=== PATIENT | female | born 1940 | race Caucasian/White ===

== ENCOUNTER → 2020-07-22 12:49 | Outpatient (BNVA) | payer MEDICARE, SELFPAY | PROVIDERS: PCP Internal Medicine; Referring Provider Internal Medicine; Visit Provider Internal Medicine | DX: I48.21 Permanent atrial fibrillation (principal); I10 Essential (primary) hypertension; E11.8 Type 2 diabetes mellitus with unspecified complications; J44.9 Chronic obstructive pulmonary disease, unspecified; E78.5 Hyperlipidemia, unspecified; Z79.01 Long term (current) use of anticoagulants; Z79.899 Other long term (current) drug therapy | CPT/HCPCS: 93005; 99212 ==

== ENCOUNTER 2021-01-16 12:29 | Outpatient (REF) | payer MEDICARE, SELFPAY ==
--- NOTE | ~2021-01-16 | MM_ITS ---
EXAMINATION: MM SCREENING DIGITAL BREAST TOMOSYNTHESIS, BILATERAL CLINICAL INFORMATION: Screening. Asymptomatic. The lifetime risk of breast cancer based on the Tyrer-Cuzick Model is 2%. COMPARISON: Mammography: 10/04/2019, 09/28/2018, 09/13/2017, 08/19/2016, 07/07/2015 TECHNIQUE: Digital breast tomosynthesis is performed in both the craniocaudal and mediolateral oblique views along with computer-aided detection (CAD). Synthesized 2D images are generated from the tomosynthesis. Additional bilateral exaggerated CC views are provided. FINDINGS: There are scattered areas of fibroglandular density (ACR BI-RADS breast composition Category b). The breasts are symmetrically decreased in size from prior studies consistent with probable generalized weight loss. Breast tissue composition borders on heterogeneously dense. The right breast shows no interval mass or architectural abnormality. Neither breast shows abnormal calcifications. The axilla and skin contours are unremarkable. Left CC view shows asymmetric density mid aspect inner quadrant which may represent shifting fibroglandular densities. Patient will be recalled to further characterize. MM/MM tomosynthesis screening BI IMPRESSION: 1. Left: Asymmetric density mid inner quadrant on CC view possibly summation artifact. 2. Right: Bilateral breasts symmetrically smaller suggesting weight loss. Otherwise no significant change right breast. ASSESSMENT: BI-RADS 0: Incomplete - Need Additional Imaging Evaluation RECOMMENDATION: 1. Additional views of the left breast (3D rolled CC x 2; 3D spot CC). 2. Targeted ultrasound if warranted after review of the additional views. 3. Radiology department staff will contact the patient for additional imaging. This patient's information was entered into a reminder system with a target due date for their next mammogram.
== END 2021-01-16 12:30 | disposition home or self-care (01) ==
LOC: HO.MAMMO 12:29
PROVIDERS: Visit Provider Internal Medicine
DX: Z12.31 Encounter for screening mammogram for malignant neoplasm of breast (principal)
CPT/HCPCS: 77063; 77067

== ENCOUNTER 2021-01-27 11:32 | Outpatient (REF) | payer MEDICARE, SELFPAY ==
--- NOTE | ~2021-01-27 | MM_ITS ---
EXAMINATION: MM DIAGNOSTIC DIGITAL BREAST TOMOSYNTHESIS, LEFT US DIAGNOSTIC ULTRASOUND BREAST, LEFT CLINICAL INFORMATION: Recall from screening for asymmetric density mid inner left breast. Age 80. No known family history breast cancer. TC score 2%. COMPARISON: Mammography: 01/16/2021, 10/04/2019, 09/28/2018 TECHNIQUE: Digital breast tomosynthesis is performed. 2D images are generated from the tomosynthesis. The following views are obtained: 3-D rolled CC x2, 3-D spot CC Ultrasound left breast is targeted to the inner quadrants. Grayscale imaging and color Doppler are performed without and with harmonics. FINDINGS: There are scattered areas of fibroglandular density (ACR BI-RADS breast composition Category b). The additional views confirm a smooth oval nodule under 1 cm mid 9:00 position. Ultrasound demonstrates an oval complicated cyst 0.7 x 0.4 x 0.6 cm, 9:00 position 4 cm from nipple. There is some peripheral internal avascular echogenicity on each side. The margins are smooth. There is increased through-transmission of sound. No associated color flow. There is no solid mass or architectural abnormality. Results are discussed with the patient at time of visit. MM/MM tomosynthesis added views L IMPRESSION: New smooth oval nodule under 1 cm mid 9:00 left breast with benign-appearing complicated cyst on targeted ultrasound. ASSESSMENT: BI-RADS 3: Probably Benign RECOMMENDATION: Diagnostic left mammography and targeted left breast ultrasound in 6 months. This patient's information was entered into a reminder system with a target due date for their next mammogram.
== END 2021-01-27 11:33 | disposition home or self-care (01) ==
LOC: HO.MAMMO 11:32
PROVIDERS: PCP Internal Medicine; Visit Provider Internal Medicine
DX: R92.8 Other abnormal and inconclusive findings on diagnostic imaging of breast (principal)
CPT/HCPCS: 76642; 77061; 77065

== ENCOUNTER 2021-07-30 13:04 | Outpatient (REF) | payer MEDICARE, SELFPAY ==
--- NOTE | ~2021-07-30 | MM_ITS ---
EXAMINATION: MM DIAGNOSTIC DIGITAL BREAST TOMOSYNTHESIS, LEFT US DIAGNOSTIC ULTRASOUND BREAST, LEFT CLINICAL INFORMATION: Short interval six-month follow-up probable benign complicated cyst 9:00 left breast. The lifetime risk of breast cancer based on the Tyrer-Cuzick Model is under 2%. COMPARISON: Mammography: 01/27/2021, 01/16/2021, 10/04/2019; targeted left breast ultrasound 01/27/2021 TECHNIQUE: Digital breast tomosynthesis is performed in both the craniocaudal and mediolateral oblique views along with computer-aided detection (CAD). Synthesized 2D images are generated from the tomosynthesis. Ultrasound ultrasound left breast is targeted to the inner quadrant. Grayscale imaging and color Doppler are performed without and with harmonics. FINDINGS: There are scattered areas of fibroglandular density (ACR BI-RADS breast composition Category b). Parenchymal pattern is similar to prior exam. The nodular asymmetry mid medial breast on CC view is stable. There is no developing density or interval architectural abnormality. No abnormal calcifications. Ultrasound demonstrates stable mildly complicated cyst 9:00 position 4 cm from nipple measuring under 1 cm. The avascular mural internal echogenicity is similar to prior exam. Margins appears smooth and circumscribed. There is increased through-transmission of sound at real-time imaging. This will be reassessed again at time of annual bilateral mammography, due in 6 months. Results are provided to the patient at time of visit by the technologist. MM/MM tomosynthesis diagnostic LT IMPRESSION: No significant changes from prior diagnostic exam. ASSESSMENT: BI-RADS 3: Probably Benign RECOMMENDATION: Diagnostic mammography and targeted left breast ultrasound at time of annual bilateral mammography, due in 6 months. This patient's information was entered into a reminder system with a target due date for their next mammogram.
== END 2021-07-30 13:05 | disposition home or self-care (01) ==
LOC: HO.MAMMO 13:04
PROVIDERS: Visit Provider Internal Medicine
DX: N60.02 Solitary cyst of left breast (principal)
CPT/HCPCS: 76642; 77061; 77065

== ENCOUNTER → 2022-02-24 13:29 | Outpatient (BNVA) | payer MEDICARE, SELFPAY | PROVIDERS: PCP Internal Medicine; Visit Provider Internal Medicine | DX: I48.21 Permanent atrial fibrillation (principal); I10 Essential (primary) hypertension; E78.5 Hyperlipidemia, unspecified; E11.9 Type 2 diabetes mellitus without complications; J44.9 Chronic obstructive pulmonary disease, unspecified; Z79.01 Long term (current) use of anticoagulants; Z79.899 Other long term (current) drug therapy | CPT/HCPCS: 93005; 99212 ==

== ENCOUNTER 2022-02-25 14:00 | Outpatient (REF) | payer MEDICARE, SELFPAY ==
--- NOTE | ~2022-02-25 | MM_ITS ---
EXAMINATION: MM DIAGNOSTIC DIGITAL BREAST TOMOSYNTHESIS, BILATERAL US BREAST, TARGETED, LEFT CLINICAL INFORMATION: Six-month follow up left breast density. Routine yearly right breast study. The lifetime risk of breast cancer based on the Tyrer-Cuzick Model is 1.3%. COMPARISON: Mammography: 07/30/2021 and studies dating back to 01/27/2012. TECHNIQUE: Digital breast tomosynthesis is performed in both the craniocaudal and mediolateral oblique views along with computer-aided detection (CAD). Synthesized 2D images are generated from the tomosynthesis. FINDINGS: MAMMOGRAM: The breasts are heterogeneously dense, which may obscure small masses (ACR BI-RADS breast composition Category c). The right breast has a stable parenchymal pattern without new abnormal dominant mass or suspicious grouping of microcalcifications. There is again noted to be about the inferior medial aspect of the left breast a circumscribed 0.6 cm lesion without spiculation or calcification. ULTRASOUND: Targeted left breast ultrasound again demonstrated at the 9 o'clock position approximately 4 cm from nipple which is wider than it is tall without internal vascularity. It is smoothly marginated and there is some increased through sound transmission. There is some internal debris present. The lesion measures approximately 5 x 3 x 4 mm in size. Results are discussed with the patient at time of visit. MM/MM tomosynthesis diagnostic BI IMPRESSION: There are no significant changes from prior study. ASSESSMENT: BI-RADS 2: Benign RECOMMENDATION: Routine annual mammography screening due in 12 months. This patient's information was entered into a reminder system with a target due date for their next mammogram.
--- NOTE | ~2022-02-25 | US_ITS ---
EXAMINATION: US DIAGNOSTIC ULTRASOUND BREAST, LEFT CLINICAL INFORMATION: Six-month follow-up complex cyst left breast. COMPARISON: July 30, 2021 and studies dating back to July 07, 2015. TECHNIQUE: Ultrasound of the breast is performed with real-time simon scale imaging and color Doppler. FINDINGS: Targeted left breast ultrasound again demonstrates at the 9:00 position approximately 4 cm from nipple which is wider than it is tall without internal vascularity. It is smoothly marginated and there is some increased through sound transmission. There is some internal debris present. The lesion measures approximately 5 x 3 x 4 mm in size. Results are discussed with the patient at time of visit. US/US breast LT limited IMPRESSION: There are no significant changes from prior study. ASSESSMENT: BI-RADS 2: Benign RECOMMENDATION: Routine annual mammography screening due in 12 months.
== END 2022-02-25 14:01 | disposition home or self-care (01) ==
LOC: HO.MAMMO 14:00
PROVIDERS: Visit Provider Internal Medicine
DX: N60.02 Solitary cyst of left breast (principal)
CPT/HCPCS: 76642; 77062; 77066

== ENCOUNTER → 2022-04-12 13:05 | Outpatient (REF) | payer MEDICARE, SELFPAY ==
--- NOTE | 2022-04-12 13:08 | CA_ITS ---
Transthoracic Echocardiogram Patient (Last, First, Middle): Callie Raphael Jane Gender: Female Date of : 1940 Age: 81 Procedure Date: 04/12/2022 Procedure Type: Transthoracic Echocardiogram Location: OP Height: 165.1 cm Weight: 78.47 kg BSA: 1.86 m2 Heart Rate: bpm BP: 120 / 72 mmHg Rigger Up: MARILYN Referring MD: Wallace Ansari MD Symptoms: I48.21 - Permanent atrial fibrillation Study Quality: Adequate ECG Rhythm: Atrial Fibrillation Conclusions: - The left ventricular systolic function is normal. The calculated ejection fraction is 65% by biplane method. - There is mildly decreased right ventricular systolic function. - The left atrium is severely dilated. - There is moderate calcification of the aortic valve. - Mild pulmonary hypertension is present. Findings Left Ventricle Normal left ventricular cavity size. There is mildly increased left ventricular wall thickness. The left ventricular systolic function is normal. The calculated ejection fraction is 65% by biplane method. There is no evidence of regional wall motion abnormalities. Diastolic function is indeterminate on the basis of available data. Right Ventricle Normal right ventricular cavity size. There is mildly decreased right ventricular systolic function. Atria The left atrium is severely dilated. The right atrium is normal in size. Aortic Valve There is a normal trileaflet aortic valve. There is moderate calcification of the aortic valve. There is no aortic valve stenosis. There is no aortic valve regurgitation. Mitral Valve The mitral valve appears normal. There is no mitral valve regurgitation. There is no mitral valve stenosis. Pulmonic Valve The pulmonic valve is likely normal. Tricuspid Valve Normal tricuspid valve structure. There is mild tricuspid valve regurgitation. The right ventricular systolic pressure is 43 mmHg. Mild pulmonary hypertension is present. Great Vessels The aortic annulus, sinuses of valsalva, and asc aorta are normal in size. Venous The inferior vena cava is mildly dilated and collapses less than 50% with inspiration. Pericardium/Pleural There is no evidence of pericardial effusion. Prior Study Comparison Changes noted compared to prior study dated: 12/28/2016. Mild pulmonary hypertension present. Measurements 2D Linear Measurements IVSd: 1.11 0.6-0.9/0.6-1.0 cm LVIDd: 3.92 3.9-5.3/4.2-5.9 cm LVIDd Index: 2.11 2.4-3.2/2.2-3.1 cm/m2 LVIDs: 2.55 2.0-3.6 cm LVPWd: 1.09 0.7-1.1 cm LA Diam: 3.80 2.7-3.8/3.0-4.0 cm LAIDs Index: 2.04 1.5-2.3 cm/m2 LV Mass: 175.74 67-162/88-224 g LV Mass Index: 94.49 43-95/49-115 g/m2 LVOT Diam: 2.00 3.0+(-)1.3 cm 2D Systolic Function EF 4C: 59.40 >55% EF 2C: 67.30 >55% EF BiP: 64.90 >55% Mitral Valve MV Pk E: 1.09 MV Decel Time: 248.00 E'Lateral: 10.40 E'Medial: 6.96 E/E' Med: 15.70 E/E' Lat: 10.50 PHT: 73.00 MVA PHT: 3.01 Decel Pondera: 4.42 Aortic Valve AoV Pk Jhonny: 1.50 AoV Mn Jhonny: 1.13 AoV VTI: 0.30 AoV Pk Grad: 9.00 Aov Mn Grad: 6.00 POPPY Cont.VTI: 2.15 LVOT LVOT Pk Jhonny: 0.99 LVOT Mn Jhonny: 0.64 LVOT VTI: 0.21 LVOT Pk Grad: 4.00 LVOT Mn Grad: 2.00 LVOT Diam: 2.00 LVOT Area: 3.14 Diastolic Function MV Pk E: 1.09 E'Medial: 6.96 E/E' Med: 15.70 E' Laterial: 10.40 E/E' Lat: 10.50 Right Ventricle TVS' Jhonny: 8.29 Tricuspid Valve TR Pk Jhonny: 2.66 TR Pk Grad: 28.00 RA Press: 15.00 RVSP: 43.00 Great Vessels Aorta Sinus of Valsalva: 3.24 2.0-3.[address] Ridge: 2.35 1.7-3.4 cm Ao Asc: 3.30 2.1-3.4 cm Updated in Other Vendor System with Status of Final Wallace Ansari MD electronically signed on 04/13/2022 11:46:15 AM with status of Final
== END ==
LOC: HO.CARD 13:05
PROVIDERS: PCP Internal Medicine; Visit Provider Internal Medicine
DX: I48.21 Permanent atrial fibrillation (principal)
CPT/HCPCS: 93306

== ENCOUNTER 2023-03-08 15:49 | Outpatient (REF) | payer MEDICARE, SELFPAY ==
--- NOTE | ~2023-03-08 | MM_ITS ---
EXAMINATION: MM SCREENING DIGITAL BREAST TOMOSYNTHESIS, BILATERAL CLINICAL INFORMATION: Screening. Asymptomatic. The lifetime risk of breast cancer based on the Tyrer-Cuzick Model is 1%. COMPARISON: Mammography: 02/25/2022, 07/30/2021, 01/27/2021, 01/16/2021, 10/04/2019, 09/28/2018, left breast ultrasound 02/25/2022, 07/30/2021. TECHNIQUE: Digital breast tomosynthesis is performed in both the craniocaudal and mediolateral oblique views along with computer-aided detection (CAD). Synthesized 2D images are generated from the tomosynthesis. Additional right MLO view is provided. Technologist notes technically challenging exam. Imaging tailored to patient capabilities. FINDINGS: There are scattered areas of fibroglandular density (ACR BI-RADS breast composition Category b). Breast tissue composition borders on heterogeneously dense. There is no developing density or interval significant mass or architectural abnormality or abnormal calcifications. The axilla are unremarkable. MM/MM tomosynthesis screening BI IMPRESSION: -Technically challenging exam, tailored to patient capabilities. -No mammographic evidence of malignancy. ASSESSMENT: BI-RADS 2: Benign RECOMMENDATION: Routine annual mammography screening. This patient's information was entered into a reminder system with a target due date for their next mammogram.
== END 2023-03-08 15:50 | disposition home or self-care (01) ==
LOC: HO.MAMMO 15:49
PROVIDERS: PCP Internal Medicine; Visit Provider Internal Medicine
DX: Z12.31 Encounter for screening mammogram for malignant neoplasm of breast (principal); I48.21 Permanent atrial fibrillation; I10 Essential (primary) hypertension; E78.5 Hyperlipidemia, unspecified; E11.8 Type 2 diabetes mellitus with unspecified complications; J44.9 Chronic obstructive pulmonary disease, unspecified
CPT/HCPCS: 77063; 77067; 93005; 99212

== ENCOUNTER 2023-11-22 13:03 | Outpatient (AMB) | payer MEDICARE, SELFPAY ==
[2023-11-22 13:04] VITALS: BMI 28.7
--- NOTE | 2023-11-22 13:04 | MHC.OFFVIS ---
Intake Vital Signs 11/22/23 13:04 Height 5 ft 6 in Weight 178 lb BMI 28.7 Intake Visit Reasons: Hip Intake Note: Callie Wise is a 83 year old female who presents with complaints of intermittent discomfort along the lateral aspects of both of her hips. She did undergo bilateral total hip replacement surgeries in approximately 2009. She continues with her home exercise program. She also plays pickleball at the [employer] in [place]. Patient states that she has had progressively worsening ?neuropathy? in both of her legs over the last few years. She denies any weakness. Allergies Sulfa (Sulfonamide Antibiotics) [SULFA (SULFONAMIDE ANTIBIOTICS)] Allergy (Mild, Verified 03/08/23 15:12) HIVES Iodinated Contrast Media [CONTRAST, IV] Allergy (Unknown, Verified 03/08/23 15:12) anaphylaxis oxycodone [OXYCODONE] Adverse Reaction (Unknown, Verified 03/08/23 15:12) hallucinations Medication List - Last Reconciled 11/22/23 by Frankie Perez MD amlodipine 10 mg PO DAILY apixaban 5 mg PO BID 90 days atorvastatin 20 mg PO BEDTIME digoxin 125 mcg PO DAILY dulaglutide 1.5 mg subcut QWEEK fluticasone furoate-vilanterol 200-25 mcg/dose (Breo Ellipta) 1 ea inhalation DAILY losartan 100 mg PO DAILY 30 days metformin 1,000 mg PO BID metoprolol succinate ER 100 mg PO DAILY [facility] Medical History Chronic obstructive pulmonary disease, unspecified Essential hypertension Other and unspecified hyperlipidemia Permanent atrial fibrillation Type 2 diabetes mellitus with unspecified complications Surgical History History of arthroplasty of knee History of total hip arthroplasty Family History Father Myocardial infarction Mother Hypertension Social History Alcohol intake: current Alcohol intake frequency: holidays/special occasions only Physical Exam Vital Signs: BMI result Body Mass Index 28.7 Const Other: Well-nourished well-developed very friendly female awake alert and oriented x3 in no acute distress Extrem Other: Bilateral lower extremity examination shows good capillary refill, no skin lesions noted, normal sensation light touch Bilateral hip examination shows minimal discomfort with range of motion, mild tenderness over her bursa, no overlying skin lesions Results Reviewed Results Reviewed: X-rays of the patient's bilateral hip show total hip arthroplasties in good position with no signs of loosening, no acute bony abnormalities Assessment & Plan Assessment & Plan (1) Hip pain: Code(s): M25.559 - Pain in unspecified hip Plan Ms. Raphael presents with bilateral hip discomfort most likely due to greater trochanteric bursitis after undergoing bilateral total hip replacement surgeries. At this point the patient's symptoms are tolerable to her. We will hold off on a cortisone injection. She also has bilateral lower extremity neuropathy. Thus, I did give her a prescription for gabapentin. I will see her back in 2-3 months time for repeat clinical examination. She will contact me prior to that time should any questions or concerns arise. Feel free to call me at any time should questions regarding her orthopedic management arise. I spent 22 minutes in reviewing the patient's records and imaging studies, seeing the patient and documenting in the medical record. Orders: Orders XR pelvis 1-2V Today M25.559 - Pain in unspecified hip Medications: New gabapentin 100 mg PO BEDTIME 30 caps 2RF Coding Level of Care Code New Pt Level 2 (50780) Diagnoses Hip pain M25.559
== END 2023-11-22 13:49 | disposition home or self-care (01) ==
PROVIDERS: PCP Internal Medicine; Visit Provider Orthopaedic Surgery
DX: M25.559 Pain in unspecified hip (principal)
CPT/HCPCS: 99202

== ENCOUNTER 2023-11-22 16:52 | Outpatient (REF) | payer MEDICARE, SELFPAY ==
--- NOTE | ~2023-11-22 | XR_ITS ---
EXAMINATION: XR PELVIS CLINICAL INFORMATION: Pain. COMPARISON: None available. TECHNIQUE: AP view of the pelvis. FINDINGS: Total bilateral hip arthroplasties with cerclage wire in the proximal left femur and bilateral cannulated transverse acetabular screws. No periprosthetic fracture. No significant perihardware lucency to suspect complication. Symmetric SI joints. Pelvic rim and pubic symphysis are maintained. Heterotopic ossifications adjacent to the proximal femur and acetabula bilaterally. Moderate to severe vascular calcifications. XR/XR pelvis 1-2V IMPRESSION: 1. Bilateral hip arthroplasties without evidence of hardware complication. 2. No acute fractures or malalignment. 3. Moderate to severe vascular calcifications.
== END 2023-11-22 16:53 | disposition home or self-care (01) ==
LOC: HO.HOSX 16:52
PROVIDERS: Visit Provider Orthopaedic Surgery
DX: M25.551 Pain in right hip (principal); M25.552 Pain in left hip
CPT/HCPCS: 72170; 99202

== ENCOUNTER 2024-01-24 13:18 | Outpatient (AMB) | payer MEDICARE, SELFPAY ==
[2024-01-24 13:20] VITALS: BMI 28.7
--- NOTE | 2024-01-24 13:20 | MHC.OFFVIS ---
Vital Signs 01/24/24 13:20 Height 5 ft 6 in Weight 178 lb BMI 28.7 Intake Visit Reasons: OV-B/L hip pain- follow up Intake Note: Callie Wise is a 83 year old female who presents with complaints of intermittent discomfort along the lateral aspects of both of her hips. She did undergo bilateral total hip replacement surgeries in approximately 2009. She continues with her home exercise program. The patient denies any fevers or chills. Patient states that she is most bothered by neuropathy in both of her lower extremities. She has taken gabapentin which gives only mild relief. She has not been evaluated by a neurologist. Allergies Sulfa (Sulfonamide Antibiotics) [SULFA (SULFONAMIDE ANTIBIOTICS)] Allergy (Mild, Verified 01/24/24 13:23) HIVES Iodinated Contrast Media [CONTRAST, IV] Allergy (Unknown, Verified 01/24/24 13:23) anaphylaxis oxycodone [OXYCODONE] Adverse Reaction (Unknown, Verified 01/24/24 13:23) hallucinations Medication List - Last Reconciled 01/24/24 by Frankie Perez MD amlodipine 10 mg PO DAILY apixaban 5 mg PO BID 90 days atorvastatin 20 mg PO BEDTIME digoxin 125 mcg PO DAILY dulaglutide 1.5 mg subcut QWEEK fluticasone furoate-vilanterol 200-25 mcg/dose (Breo Ellipta) 1 ea inhalation DAILY gabapentin 100 mg PO BEDTIME gabapentin 100 mg PO BEDTIME 3 months losartan 100 mg PO DAILY 30 days metformin 1,000 mg PO BID metoprolol succinate ER 100 mg PO DAILY [facility] Medical History Chronic obstructive pulmonary disease, unspecified Type 2 diabetes mellitus with unspecified complications Essential hypertension Other and unspecified hyperlipidemia Permanent atrial fibrillation Surgical History History of total hip arthroplasty History of arthroplasty of knee Family History Father Myocardial infarction Mother Hypertension Social History Alcohol intake: current Alcohol intake frequency: holidays/special occasions only Physical Exam Vital Signs: BMI result Body Mass Index 28.7 Const Other: Well-nourished well-developed very friendly female awake alert and oriented x3 in no acute distress Extrem Other: Bilateral hip examination shows that the surgical incisions are well healed, no erythema, minimal discomfort with range of motion, minimal tenderness over her greater trochanteric bursae Assessment & Plan Assessment & Plan (1) Neuropathic pain, leg, bilateral: Code(s): G57.93 - Unspecified mononeuropathy of bilateral lower limbs Category: Medical Plan Ms. Raphael continues to do well after undergoing bilateral total hip replacement surgeries approximately 10 years ago. The patient does have neuropathy in both of her lower extremities of unclear etiology. Thus, I put in a referral to [facility] neurology for further evaluation. She will follow up with me after that appointment to discuss their recommendations. Feel free to call me at any time should questions regarding her orthopedic management arise. I spent 21 minutes in reviewing the patient's records and imaging studies, seeing the patient and documenting in the medical record. Orders: Referrals Neurology Referral G57.93 - Unspecified mononeuropathy of bilateral lower limbs Medications: New gabapentin 100 mg PO BEDTIME 90 caps 3RF 3 months Coding Level of Care Code Est Pt Level 2 (14494) Diagnoses Neuropathic pain, leg, bilateral G57.93
== END 2024-01-24 13:40 | disposition home or self-care (01) ==
PROVIDERS: PCP Internal Medicine; Visit Provider Orthopaedic Surgery
DX: G57.93 Unspecified mononeuropathy of bilateral lower limbs (principal)
CPT/HCPCS: 99213

== ENCOUNTER → 2024-01-24 13:18 | Outpatient (BNVA) | payer MEDICARE, SELFPAY | PROVIDERS: PCP Internal Medicine; Visit Provider Orthopaedic Surgery | DX: G57.93 Unspecified mononeuropathy of bilateral lower limbs (principal); Z96.643 Presence of artificial hip joint, bilateral | CPT/HCPCS: 99212 ==

== ENCOUNTER 2024-03-06 13:34 | Outpatient (AMB) | payer MEDICARE, SELFPAY ==
[2024-03-06 13:37] VITALS: BP 158/68; PULSE 68; BMI 26.7
--- NOTE | 2024-03-06 13:37 | A.OFFVIS_ITS ---
Vital Signs 03/06/24 13:37 Height 5 ft 6 in Weight 165 lb 5.547 oz BMI 26.7 BP 158/68 H Blood Pressure Location Lt brachial Position Sitting Pulse 68 Pulse Source Pulse Oximeter Intake Visit Reasons: 1 yr f/up Allergies Sulfa (Sulfonamide Antibiotics) [SULFA (SULFONAMIDE ANTIBIOTICS)] Allergy (Mild, Verified 01/24/24 13:23) HIVES Iodinated Contrast Media [CONTRAST, IV] Allergy (Unknown, Verified 01/24/24 13:23) anaphylaxis oxycodone [OXYCODONE] Adverse Reaction (Unknown, Verified 01/24/24 13:23) hallucinations Medication List - Last Reconciled 03/06/24 by Wallace Ansari MD albuterol sulfate 90 mcg/actuation inhalation allopurinol 100 mg PO BID amlodipine 7.5 mg PO DAILY apixaban 5 mg PO BID 90 days atorvastatin 20 mg PO BEDTIME digoxin 125 mcg PO DAILY dulaglutide 1.5 mg subcut QWEEK fluticasone furoate-vilanterol 200-25 mcg/dose (Breo Ellipta) 1 ea inhalation DAILY losartan 100 mg PO DAILY 30 days metformin 1,000 mg PO BID metoprolol succinate ER 100 mg PO DAILY montelukast 10 mg PO BEDTIME HPI Comments Details: Callie returns for follow-up regarding atrial fibrillation. Generally, doing well. No complaints like angina or shortness of breath or palpitations or in fact anything cardiac sounding. Her blood pressure is high today. She states that her amlodipine has been cut back and that may be the reason. Otherwise, no specific concerns. [facility] Medical History Chronic obstructive pulmonary disease, unspecified Type 2 diabetes mellitus with unspecified complications Essential hypertension Other and unspecified hyperlipidemia Permanent atrial fibrillation Surgical History History of total hip arthroplasty History of arthroplasty of knee Family History Father Myocardial infarction Mother Hypertension Social History Alcohol intake: current Alcohol intake frequency: holidays/special occasions only Review of Systems Const Denies weakness ENT Denies dizziness Card Denies chest pain, Denies chest pain with activity, Denies syncope, Denies rapid heart rate, Denies pedal edema, Denies edema, Denies leg edema, Denies lightheadedness, Denies palpitations, Denies dyspnea, Denies dyspnea on exertion and Denies orthopnea Resp Denies cough, Denies dyspnea and Denies dyspnea on exertion GI Denies hematochezia and Denies change in stool character Musc Denies abnormal gait, Denies muscle cramps, Denies muscle weakness, Denies numbness, Denies radiating pain into limb and Denies tingling Neuro Denies abnormal gait, Denies dizziness, Denies syncope, Denies numbness, Denies tingling and Denies weakness Endo Denies palpitations Physical Exam Vital Signs: Last Vital Signs Pulse 68 03/06/24 13:37 BP 158/68 H 03/06/24 13:37 BMI result Body Mass Index 26.7 Const General: comfortable and no acute distress Orientation/consciousness: patient oriented x3 HEENT Other: Unremarkable Head: Yes normal to inspection Neck Neck: Yes normal visual inspection Chest Chest palpation & inspection: normal inspection of the chest Resp Auscultation: clear to auscultation bilaterally Cardio Palpation: normal PMI Heart sounds: S1 normal heart sound present, S2 normal heart sound present, no gallops, no murmurs and no rubs GI Palpation (GI): Soft to palpation Back/Spine/Pelvis Other: unremarkable Skin General skin exam: no rashes or lesions noted Neuro General: patient oriented x3 Extrem General: Yes normal to inspection Psych Mental Status: mental status grossly normal Assessment & Plan Assessment & Plan (1) Permanent atrial fibrillation: Code(s): I48.21 - Permanent atrial fibrillation Category: Medical Plan: Continue beta-blockers and digoxin. Continue Eliquis. Will need to get the most recent labs from PCP. Last echocardiogram with LVEF of 65%. Severely dilated left atrium. Patient would like to not get an EKG as she states she had to pay for it last time. (2) Essential hypertension: Code(s): I10 - Essential (primary) hypertension Category: Medical Plan: Blood pressure is going up. Advised her to go back to amlodipine 10 mg daily. That was the previous dose. Continue losartan. (3) Other and unspecified hyperlipidemia: Code(s): E78.5 - Hyperlipidemia, unspecified Category: Medical Plan: On statins. We will request labs from PCP. (4) Type 2 diabetes mellitus with unspecified complications: Code(s): E11.8 - Type 2 diabetes mellitus with unspecified complications Category: Medical Plan: On dulaglutide, metformin. (5) Chronic obstructive pulmonary disease, unspecified: Code(s): J44.9 - Chronic obstructive pulmonary disease, unspecified Category: Medical Plan: Stable. Plan Follow-up in 1 year. In the interim, she will call with concerns. Coding Level of Care Code Est Pt Level 4 (66868) Diagnoses Permanent atrial fibrillation I48.21 Essential hypertension I10 Other and unspecified hyperlipidemia E78.5 Type 2 diabetes mellitus with unspecified complications E11.8 Chronic obstructive pulmonary disease, unspecified J44.9
== END 2024-03-06 13:59 | disposition home or self-care (01) ==
PROVIDERS: PCP Internal Medicine; Visit Provider Internal Medicine
DX: I48.21 Permanent atrial fibrillation (principal); I10 Essential (primary) hypertension; E78.5 Hyperlipidemia, unspecified; E11.8 Type 2 diabetes mellitus with unspecified complications; J44.9 Chronic obstructive pulmonary disease, unspecified
CPT/HCPCS: 99214

== ENCOUNTER → 2024-03-06 13:34 | Outpatient (BNVA) | payer MEDICARE, SELFPAY | PROVIDERS: PCP Internal Medicine; Visit Provider Internal Medicine | DX: I48.21 Permanent atrial fibrillation (principal); I10 Essential (primary) hypertension; E78.5 Hyperlipidemia, unspecified; E11.8 Type 2 diabetes mellitus with unspecified complications; J44.9 Chronic obstructive pulmonary disease, unspecified; Z79.01 Long term (current) use of anticoagulants; Z79.899 Other long term (current) drug therapy | CPT/HCPCS: 99212 ==

== ENCOUNTER 2024-05-18 12:13 | Outpatient (REF) | payer MEDICARE, SELFPAY ==
--- NOTE | ~2024-05-18 | MM_ITS ---
EXAMINATION: MM SCREENING DIGITAL BREAST TOMOSYNTHESIS, BILATERAL CLINICAL INFORMATION: Screening. Asymptomatic. COMPARISON: Mammography: Comparison is made with available priors TECHNIQUE: Digital breast mammography with tomosynthesis is performed in both the craniocaudal and mediolateral oblique views along with computer-aided detection (CAD). FINDINGS: The breasts are heterogeneously dense, which may obscure small masses (ACR BI-RADS breast composition Category c). There are no significant masses, abnormal calcifications, or other abnormalities. MM/MM tomosynthesis screening BI IMPRESSION: No mammographic evidence of malignancy. ASSESSMENT: BI-RADS BI-RADS 1 - Negative RECOMMENDATION: Routine annual mammography screening. 1 year F/U This examination should not preclude the clinical evaluation of a suspicious palpable abnormality. This patient's information was entered into a reminder system with a target due date for their next mammogram. Electronically signed by: Jeny Mane DO 06/09/2024 10:37 PM EDT
== END 2024-05-18 12:14 | disposition home or self-care (01) ==
LOC: HO.MAMMO 12:13
PROVIDERS: Visit Provider Internal Medicine
DX: Z12.31 Encounter for screening mammogram for malignant neoplasm of breast (principal)
CPT/HCPCS: 77063; 77067

== ENCOUNTER → 2024-05-18 12:15 | Outpatient (BNV) | payer MEDICARE, SELFPAY | PROVIDERS: Visit Provider Internal Medicine | DX: Z12.31 Encounter for screening mammogram for malignant neoplasm of breast (principal) | CPT/HCPCS: 77063; 77067 ==

== ENCOUNTER 2024-11-28 09:17 | Outpatient (REF) | payer MEDICARE, SELFPAY ==
--- NOTE | ~2024-11-28 | XR_ITS ---
EXAMINATION: XR SHOULDER 2 OR MORE VIEWS RIGHT HISTORY: M25.511 - Pain in right shoulder COMPARISON: There are no prior studies available for comparison. FINDINGS: Two views of the right shoulder are submitted. Osseous mineralization is normal. There is no fracture or dislocation. The glenohumeral joint is maintained. There is mild narrowing of the AC joint. The soft tissues are unremarkable. XR/XR shoulder RT min 2V IMPRESSION: Mild narrowing of the AC joint. Electronically signed by: Srinivas De Jesus MD 11/28/2024 12:44 PM EDT
--- OUTSIDE RECORDS SUMMARY | 2024-11-29 10:47 | XMS_ITS | Encounter Summary ---
Author Organization [facility] Address [address] [place] [address] Care Team Providers Care Medical Reviewer Name Role Phone Maliha Pierson MD Primary Care Provider [phone] Reason for Visit * Reason Onset Date Comments Orders Call 02/02/2022 Encounter Details Date Type Department Care Team Description 02/02/2022 Telephone Internal Medicine - [address], [address] [place], [place] [id number] Maliha Pierson MD [address] [place] [phone] Orders Call Social History Tobacco Use Types Packs/Day Years Used Date Smoking Tobacco: Former Cigarettes 1 Q uit: 1998 Smokeless Tobacco: Former Quit: 1998 Alcohol Use Standard Drinks/Week Comments Yes 0 (1 standard drink = 0.6 oz pur e alcohol) Sex Assigned at Date Recorded Not on file documented as of this encounter Miscellaneous Notes * Telephone Encounter - Nita Joseph M.A. - 02/09/2022 9:01 AM EDT [phone] * Telephone Encounter - Nita Joseph M.A. - 02/09/2022 8:55 AM EDT Faxed over the ultrasound to [phone] * Telephone Encounter - Maliha Pierson MD - 02/07/2022 7:50 PM EDT Orders placed on 02/05/2022 * Telephone Encounter - Nita Joseph M.A. - 02/05/2022 3:09 PM EDT Please advise already sent to fax [phone] * Telephone Encounter - Negra Del Rosario - 02/05/2022 10:49 AM EDT Per harry request fax # [phone] * Telephone Encounter - Nita Joseph M.A. - 02/03/2022 10:52 AM EDT FWD to please enter orders fo Diagnostic Bilateral Mammo and ultrasound left breast density * Telephone Encounter - Negra Del Rosario - 02/03/2022 9:19 AM EDT [facility] is calling again states they needd this order before 330 today. Pt is schedule for tomarrow but if referral isnt in by today they have to calll and cancel her the day before. * Telephone Encounter - Jamia Montoya M.A. - 02/03/2022 8:39 AM EDT Fwd to dr. Pierson please enter orders thanks * Telephone Encounter - Pastora Couch - 02/02/2022 11:17 AM EDT Orders call Weston from [facility] is requesting an order for pt 6 month fu order for Diagnostic Bilateral Mammo and ultra sound left breast density. . Jameel cb [phone] documented in this encounter Plan of Treatment Not on file documented as of this encounter Visit Diagnoses Not on filedocumented in this encounter Care Teams Medical Reviewer Relationship Specialty Start Date End Date Maliha Pierson MD PCP - General Internal Medicine 01/21/21 documented as of this encounter
--- OUTSIDE RECORDS SUMMARY | 2024-11-29 10:47 | XMS_ITS ---
Author Name [facility] Organization Unknown Encounters Encounter Type Encounter Reason Primary Diagnosis Location Date Ambulatory [facility] [place] 01/23/2024 Care Team Organization Name Specialty Phone Email Start Date End [facility] NO PCP Primary Care 05/04/2024
--- OUTSIDE RECORDS SUMMARY | 2024-11-29 10:47 | XMS_ITS | Encounter Summary ---
Author Organization [facility] [place] Address [address] [place] [address] Care Team Providers Care Mitigation Supervisor Name Role Phone Maliha Pierson MD Primary Care Provider [phone] Reason for Visit * Reason Comments E-prescribe Rx Request Encounter Details Date Type Department Care Team Description 06/22/2021 Refill Internal Medicine - [address], [address] [place] [address] Maliha Pierson MD [address] [place] [id number] E-prescribe Rx Request Social History Tobacco Use Types Packs/Day Years Used Date Smoking Tobacco: Former Cigarettes 1 Q uit: 1998 Smokeless Tobacco: Former Quit: 1998 Alcohol Use Standard Drinks/Week Comments Yes 0 (1 standard drink = 0.6 oz pur e alcohol) Sex Assigned at Date Recorded Not on file documented as of this encounter Miscellaneous Notes * Telephone Encounter - Zhane Youngblood [facility] - 06/25/2021 2:11 PM EDT No visits with results within 1 Month(s) from this visit. Latest known visit with results is: Orders Only on 05/08/2021 Component Date Value ??? CREAT 05/08/2021 0.78 ? ? GLOMERULAR FILTRATION RA* 05/08/2021 > 60 ??? NA 05/08/2021 140 ??? K 05/08/2021 3.9 ??? CL 05/08/2021 104 ??? CALCIUM 05/08/2021 9.2 ??? Albumin 05/08/2021 3.5 ??? SGPT 05/08/2021 24 ??? GLUCOSE 05/08/2021 131* ??? Blood Urea Nitrogen 05/08/2021 18 ??? CARBON DIOXIDE (CO2) 05/08/2021 30 ??? ANION GAP 05/08/2021 6 ??? TOTAL PROTEIN (TP) 05/08/2021 7.5 ??? BILIRUBIN TOTAL 05/08/2021 0.5 ??? SGOT 05/08/2021 15 ??? ALK PHOS 05/08/2021 124* ??? WHITE BLOOD COUNT 05/08/2021 11.3* ??? RED BLOOD COUNT 05/08/2021 5.0* ??? Hemoglobin 05/08/2021 14.6 ??? Hematocrit 05/08/2021 46.3 ??? MEAN CORPUSCULAR VOLUME 05/08/2021 91.9 ??? MEAN CORPUSCULAR HEMOGLO* 05/08/2021 29.0 ??? MEAN CORPUSCULAR HGB CONC 05/08/2021 31.5* ??? RED CELL DISTRIBUTION WI* 05/08/2021 14.6 ??? PLT COUNT 05/08/2021 310 ??? MEAN PLATELET VOLUME 05/08/2021 10.8 ??? NRBC % AUTO 05/08/2021 0.0 ??? NEUTROPHILS % 05/08/2021 58.5 ??? LYMPH % 05/08/2021 31.9 ??? MONO % 05/08/2021 6.2 ??? EOS % 05/08/2021 2.1 ??? BASO % 05/08/2021 0.5 ??? IMMATURE GRANULOCYTES % 05/08/2021 0.8 ??? NRBC # AUTO 05/08/2021 0.00 ??? NEUT # 05/08/2021 6.62 ??? LYMPH # 05/08/2021 3.61 ??? MONO # 05/08/2021 0.70 ??? EOS # 05/08/2021 0.24 ??? BASO # 05/08/2021 0.06 ??? IMMATURE GRANULOCYTES # 05/08/2021 0.09* ??? TSH CASCADE 05/08/2021 2.37 ??? Cholesterol 05/08/2021 174 ??? TRIGLYCERIDES 05/08/2021 163* ??? HDL CHOLESTEROL 05/08/2021 56 ??? LDL CALCULATED 05/08/2021 86 ??? TC-HDLC RATIO 05/08/2021 3.1 ??? GLYCATED HEMOGLOBIN A1C 05/08/2021 6.5* ??? ESTIMATED AVERAGE GLUCOSE 05/08/2021 140 * Telephone Encounter - Rita Hodgson - 06/24/2021 1:26 PM EDT Baljinder 05/15/21 Nov 09/23/21 documented in this encounter Plan of Treatment Not on file documented as of this encounter Visit Diagnoses Not on filedocumented in this encounter Care Teams Mitigation Supervisor Relationship Specialty Start Date End Date Maliha Pierson MD PCP - General Internal Medicine 01/21/21 documented as of this encounter
--- OUTSIDE RECORDS SUMMARY | 2024-11-29 10:47 | XMS_ITS | Encounter Summary ---
Author Organization [facility] Address [address] [place] [address] Care Team Providers Care Core Baker Name Role Phone Maliha Pierson MD Primary Care Provider [phone] Encounter Details Date Type Department Care Team Description 04/01/2022 SCAN Medical Records [address] [place] [address] Abstract, Provider Mammogram abnormal; Positive QuantiFERON-TB Gold test Social History Tobacco Use Types Packs/Day Years Used Date Smoking Tobacco: Former Cigarettes 1 Q uit: 1998 Smokeless Tobacco: Former Quit: 1998 Alcohol Use Standard Drinks/Week Comments Yes 0 (1 standard drink = 0.6 oz pur e alcohol) Sex Assigned at Date Recorded Not on file documented as of this encounter Plan of Treatment Not on file documented as of this encounter Procedures Procedure Name Priority Date/Time Associated Diagnosis Comments SONO BREAST, COMPLETE Routine 02/25/2022 Mammogram abnormal documented in this encounter Results * SONO BREAST, COMPLETE (02/25/2022) Maliha Pierson MD MAMMOGRAPHY documented in this encounter Visit Diagnoses Diagnosis Mammogram abnormal Abnormal mammogram, unspecified Positive QuantiFERON-TB Gold test Nonspecific reaction to cell mediated immunity measurement of gamma interferon antigen response without active tuberculosis documented in this encounter Care Teams Core Baker Relationship Specialty Start Date End Date Maliha Pierson MD PCP - General Internal Medicine 01/21/21 documented as of this encounter
--- OUTSIDE RECORDS SUMMARY | 2024-11-29 10:47 | XMS_ITS | Encounter Summary ---
Author Organization [facility] Address [facility] [place] [address] Care Team Providers Care Tsa Screener Name Role Phone Maliha Pierson MD Primary Care Provider [phone] Encounter Details Date Type Department Care Team Description 01/17/2024 Orders Only Medical Records [address] [place] [address] Nico Arnold Social History Tobacco Use Types Packs/Day Years [...] Procedure Name Priority Date/Time Associated Diagnosis Comments OUTSIDE EYE EXAM Routine 01/04/2024 documented in this encounter Results * OUTSIDE EYE EXAM (01/04/2024) Nico Arnold PROCEDURES documented in this encounter Visit Diagnoses Not on filedocumented in this encounter Care Teams Tsa Screener Relationship Specialty Start Date End Date Maliha Pierson MD PCP - General Internal Medicine 01/21/21 documented as of this encounter
--- OUTSIDE RECORDS SUMMARY | 2024-11-29 10:47 | XMS_ITS | Encounter Summary ---
Author Organization [facility] Address [facility] [place] [address] Care Team Providers Care Field Marketing Representative Name Role Phone Maliha Pierson MD Primary Care Provider [phone] Encounter Details Date Type Department Care Team Description 01/28/2021 Release of Information Medical Records [address] [place] [id number] Abstract, Provider Social History Tobacco Use Types Packs/Day Years Used Date Smoking Tobacco: Former Cigarettes 1 Q uit: 1998 Smokeless Tobacco: Former Quit: 1998 Alcohol Use Standard Drinks/Week Comments Yes 0 (1 standard drink = 0.6 oz pur e alcohol) Sex Assigned at Date Recorded Not on file COVID-19 Exposure Response Date Recorded In the last month, have you been in contact with someone who was confirmed or suspected to have Coronavirus / COVID-19? No / Unsure 01/20/2021 2:10 PM EDT documented as of this encounter Plan of Treatment Not on file documented as of this encounter Visit Diagnoses Not on filedocumented in this encounter Care Teams Field Marketing Representative Relationship Specialty Start Date End Date Maliha Pierson MD PCP - General Internal Medicine 01/21/21 documented as of this encounter
--- OUTSIDE RECORDS SUMMARY | 2024-11-29 10:47 | XMS_ITS | Encounter Summary ---
Author Organization [facility] Address [address] [place] [address] Care Team Providers Care Ase Master Mechanic Name Role Phone Maliha Pierson MD Primary Care Provider [phone] Encounter Details Date Type Department Care Team Description 04/01/2022 Orders Only Internal Medicine - [address], [address] [place] [address] Maliha Pierson MD [address] [place] [phone] Mammogram abnormal Social History Tobacco Use Types Packs/Day Years [...] Procedure Name Priority Date/Time Associated Diagnosis Comments DIAGNOSTIC MAMMOGRAPHY INCLU DING CAD BILATERAL Routine 02/25/2022 Mammogram abnormal documented in this encounter Results * DIAGNOSTIC MAMMOGRAPHY INCLUDING CAD BILATERAL (02/25/2022) Maliha Pierson MD MAMMOGRAPHY documented in this encounter Visit Diagnoses Diagnosis Mammogram abnormal Abnormal mammogram, unspecified documented in this encounter Care Teams Ase Master Mechanic Relationship Specialty Start Date End Date Maliha Pierson MD PCP - General Internal Medicine 01/21/21 documented as of this encounter
--- OUTSIDE RECORDS SUMMARY | 2024-11-29 10:48 | XMS_ITS | Clinical Summary ---
Author Organization [facility] Address [address] [place] [address] Phone Care Team Providers Care Quantitative Analyst Marketing Name Role Phone Maliha Pierson MD Primary Care Provider [phone] Allergies Active Allergy Reactions Criticality Noted Date [...] Encounters Date Type Department Care Team Description 11/28/2024 11:22 AM EDT - 11/28/2024 11:59 PM EDT Hospital Encounter [facility] Ultrasound [address] [place] [id number] Thyroid nodule Discharge Disposition: Home or Self Care 11/07/2024 Telephone Internal Medicine - [place] [address] [facility] [address] [place] [phone] Maliha Pierson MD 10/23/2024 2:30 PM EST Office Visit Internal Medicine [facility] [address] [facility] [address] [place] [address] Maliha Pierson MD Thyroid nodule [...] fibrillation (HCC) Diabetes mellitus type 2, uncomplicated (CMS/HCC) 07/08/2017 DX:Diabetes mellitus type 2, uncomplicated (HCC) Hyperlipidemia 07/04/2017 DX:Hyperlipidemi a Hypertension 07/04/2017 DX:Hypertension [...] Care Team (Late st Contact Info) Description 04/22/2025 1:00 PM EDT Office Visit Internal Medicine - [place] [address] [facility] [address] [place] [address] Maliha Pierson MD [facility] [address] [place] [address] Health Maintenance Due Date Last [...] Procedure Name Priority Date/Time Associated Diagnosis Comments US HEAD NECK SOFT TISSUE Routine 11/28/2024 11:45 AM EDT Thyroid nodule CBC WITH AUTO DIFFERENTIAL Routine 10/19/2024 9:07 [...] (CMS/HCC) Essential hypertension, malignant Diabetes mellitus (CMS/HCC) HM DIABETES EYE EXAM Routine 01/04/2024 DOMINIC DEXA AXIAL SKELETON Routine 03/25/2022 11:34 AM EDT Asymptomatic menopausal state from Last 3 Months or Most Recently Relevant to Health Maintenance Results * US Head Neck Soft Tissue (11/28/2024 11:45 AM EDT) Anatomical Region Laterality Modality Head and Neck Ultrasound 11/28/2024 2:27 PM EDT Impressions 11/28/2024 2:41 PM EDT 1. ??Bilateral thyroid nodules. 2. ??The dominant nodule is a TIRADS 3 nodule in the left lower pole measuring up to 4 cm. ??Guidelines recommend consideration of FNA as this nodule given the size greater than 2.5 cm. 3. ??Smaller left upper pole and right interpolar nodules are both TIRADS 4. Guidelines recommended consideration of FNA of the left upper pole nodule, as it measures greater than 1.5 cm. -------- FINAL REPORT -------- Dictated By: Fortino Lee Dictated Date: 11/28/2024 14:27 ET Assigned Physician: Fortino Lee Reviewed and Electronically Signed By: Fortino Lee Signed Date: 11/28/2024 14:41 ET Workstation ID: [id number] Transcribed By: Self Edit Transcribed Date: 11/28/2024 14:28 ET Narrative 11/28/2024 2:41 PM EDT PROCEDURE: Thyroid ultrasound. HISTORY: incidental thyroid nodule left,4 cm size. TECHNIQUE: Grayscale and color Doppler ultrasound evaluation of the thyroid gland. COMPARISON: None. FINDINGS: The right lobe measures 5.2 x 1.5 x 2.1 cm. ??The left lobe measures 4.9 x 3.4 x 3.0 cm. ??The isthmus measures 6 cm in thickness. There is an oval circumscribed hypoechoic nodule in the interpolar right thyroid lobe measuring 11 x 6 x 11 mm. Mildly heterogeneous isoechoic left lower pole nodule measuring 4 x 3.2 x 4.0 cm. Predominantly hypoechoic oval 1.6 x 1.1 x 1.7 cm left upper pole nodule. Procedure Note Fortino Lee MD - 11/28/2024 PROCEDURE: Thyroid ultrasound. HISTORY: incidental thyroid nodule left,4 cm size. TECHNIQUE: Grayscale and color Doppler ultrasound evaluation of thethyroid gland. COMPARISON: None. FINDINGS: The right lobe measures 5.2 x 1.5 x 2.1 cm. The left lobe measures 4.9 x3.4 x 3.0 cm. The isthmus measures 6 cm in thickness. There is an oval circumscribed hypoechoic nodule in the interpolar rightthyroid lobe measuring 11 x 6 x 11 mm. Mildly heterogeneous isoechoic left lower pole nodule measuring 4 x 3.2 x4.0 cm. Predominantly hypoechoic oval 1.6 x 1.1 x 1.7 cm left upper pole nodule. IMPRESSION: 1. Bilateral thyroid nodules. 2. The dominant nodule is a TIRADS 3 nodule in the left lower polemeasuring up to 4 cm. Guidelines recommend consideration of FNA as thisnodule given the size greater than 2.5 cm. 3. Smaller left upper pole and right interpolar nodules are both TIRADS4. Guidelines recommended consideration of FNA of the left upper pole nodule,as it measures greater than 1.5 cm. -------- FINAL REPORT -------- Dictated By: Fortino Lee Dictated Date: 11/28/2024 14:27 ET Assigned Physician: Fortino Lee Reviewed and Electronically Signed By: Fortino Lee Signed Date: 11/28/2024 14:41 ET Workstation ID: [id number] Transcribed By: Self Edit Transcribed Date: 11/28/2024 14:28 ET us Maliha Pierson MD [facility] US PROCEDURES Final Result * (ABNORMAL) Lipid panel with reflex to direct LDL (10/19/2024 9:07 AM EST) Cholesterol 184 0 - 200 mg/dL LAB CHEMISTRY METHOD 10/19/2024 10:45 AM EST [facility] Triglycerides 209(H) 0 - 150 mg/dL LAB CHEMISTRY METHOD 10/19/2024 10:45 AM EST [facility] HDL 55 >=40 mg/dL LAB CHEMISTRY METHOD 10/19/2024 10:45 AM EST [facility] LDL Calculated 87 0 - 100 mg/dL LAB CHEMISTRY METHOD 10/19/2024 10:45 AM EST [facility] VLDL Cholesterol Avni 41.8 mg/dL LAB CHEMISTRY METHOD 10/19/2024 10:45 AM EST [facility] Non HDL Chol. (LDL+VLDL) 129 <145 mg/dL LAB CHEMISTRY METHOD 10/19/2024 10:45 AM EST [facility] Chol/HDL Ratio 3.3 0.0 - 4.4 LAB CHEMISTRY METHOD 10/19/2024 10:45 AM [facility] Blood Venous blood specimen / Unknown Venipuncture / Unknown 10/19/2024 9:07 AM EST 10/19/2024 9:07 AM EST us Maliha Pierson MD LAB BLOOD ORDERABLES Final Res ult [facility] [address] [place] [address], * (ABNORMAL) CBC auto differential (10/19/2024 9:07 AM EST) WBC 10.3 4.8 - 10.8 K/mcL LAB HEMETOLOGY METHOD 10/19/2024 10:16 AM [facility] RBC 5.10(H) 3.80 - 4.80 M/mcL LAB HEMETOLOGY METHOD 10/19/2024 10:16 AM [facility] Hemoglobin 14.8 11.5 - 16.0 g/dL LAB HEMETOLOGY METHOD 10/19/2024 10:16 AM [facility] Hematocrit 44.8 35.0 - 47.0 % LAB HEMETOLOGY METHOD 10/19/2024 10:16 AM [facility] MCV 88.5 79.0 - 98.0 FL LAB HEMETOLOGY METHOD 10/19/2024 10:16 AM [facility] MCH 29.2 27.0 - 32.0 pcg LAB HEMETOLOGY METHOD 10/19/2024 10:16 AM [facility] MCHC 33.0 32.0 - 37.0 g/dL LAB HEMETOLOGY METHOD 10/19/2024 10:16 AM [facility] RDW 14.6 11.0 - 15.0 % LAB HEMETOLOGY METHOD 10/19/2024 10:16 AM [facility] Platelets 270 130 - 400 K/mcL LAB HEMETOLOGY METHOD 10/19/2024 10:16 AM [facility] MPV 10.6 7.0 - 11.0 FL LAB HEMETOLOGY METHOD 10/19/2024 10:16 AM [facility] NRBC 0.0 <1.0 % LAB HEMETOLOGY METHOD 10/19/2024 10:16 AM [facility] NRBC Absolute 0.00 <0.10 K/mcL LAB HEMETOLOGY METHOD 10/19/2024 10:16 AM [facility] Neutrophils Relative 66.2 % LAB HEMETOLOGY METHOD 10/19/2024 10:16 AM [facility] Lymphocytes Relative 24.2 % LAB HEMETOLOGY METHOD 10/19/2024 10:16 AM [facility] Monocytes Relative 7.0 % LAB HEMETOLOGY METHOD 10/19/2024 10:16 AM [facility] Eosinophils Relative 1.7 % LAB HEMETOLOGY METHOD 10/19/2024 10:16 AM [facility] Basophils Relative 0.5 % LAB HEMETOLOGY METHOD 10/19/2024 10:16 AM [facility] Immature Granulocytes Relative 0.4 % LAB HEMETOLOGY METHOD 10/19/2024 10:16 AM [facility] Neutrophils Absolute 6.83 1.50 - 7.00 K/mcL LAB HEMETOLOGY METHOD 10/19/2024 10:16 AM [facility] Lymphocytes Absolute 2.49 1.00 - 5.00 K/mcL LAB HEMETOLOGY METHOD 10/19/2024 10:16 AM EST [facility] Monocytes Absolute 0.72 0.20 - 1.00 K/mcL LAB HEMETOLOGY METHOD 10/19/2024 10:16 AM EST [facility] Eosinophils Absolute 0.18 0.00 - 0.50 K/mcL LAB HEMETOLOGY METHOD 10/19/2024 10:16 AM EST [facility] Basophils Absolute 0.05 0.00 - 0.20 K/[facility] LAB HEMETOLOGY METHOD 10/19/2024 10:16 AM EST [facility] Immature Granulocytes Absolute 0.04(H) 0.00 - 0.03 K/mcL LAB HEMETOLOGY METHOD 10/19/2024 10:16 AM [facility] Blood Venous blood specimen / Unknown Venipuncture / Unknown 10/19/2024 9:07 AM EST 10/19/2024 9:07 AM EST Maliha Pierson MD LAB BLOOD ORDERABLES Final Res ult [facility] [address] [place] [address], * (ABNORMAL) Vitamin D 25 hydroxy (10/19/2024 9:07 AM EST) Vit D, 25-Hydroxy 12.8(L) 30.0 - 80.0 ng/mL LAB CHEMISTRY METHOD 10/19/2024 11:05 AM EST [facility] Blood Venous blood specimen / Unknown Venipuncture / Unknown 10/19/2024 9:07 AM EST 10/19/2024 9:07 AM EST Maliha Pierson MD LAB BLOOD ORDERABLES Final Res ult [facility] [address] [place] [address], * (ABNORMAL) Magnesium (10/19/2024 9:07 AM EST) Magnesium 1.7(L) 1.9 - 2.6 mg/dL LAB CHEMISTRY METHOD 10/19/2024 10:38 AM EST [facility] Blood Venous blood specimen / Unknown Venipuncture / Unknown 10/19/2024 9:07 AM EST 10/19/2024 9:07 AM EST us Maliha Pierson MD LAB BLOOD ORDERABLES Final Res ult Performing Organization Address City/[facility]/ZIP Co de Phone Number [facility] [address] [place] [address], [place] [phone] * (ABNORMAL) Hemoglobin A1c (10/19/2024 9:07 AM EST) Pathologist [facility] Hemoglobin A1C 6.8(H) <6.5 % LAB CHEMISTRY METHOD 10/19/2024 1:49 PM EST [facility] Mean Bld Glu Estim. 148 mg/dL LAB CHEMISTRY METHOD 10/19/2024 1:49 PM EST [facility] Blood Venous blood specimen / Unknown Venipuncture / Unknown 10/19/2024 9:07 AM EST 10/19/2024 9:07 AM EST us Maliha Pierson MD LAB BLOOD ORDERABLES Final Res ult [facility] [address] [place] [address], [place] [phone] * (ABNORMAL) Comprehensive metabolic panel (10/19/2024 9:07 AM EST) [facility] Sodium 139 133 - 145 mmol/L LAB CHEMISTRY METHOD 10/19/2024 10:45 AM EST [facility] Potassium 3.1(L) 3.5 - 5.5 mmol/L LAB CHEMISTRY METHOD 10/19/2024 10:45 AM [facility] Chloride 104 96 - 110 mmol/L LAB CHEMISTRY METHOD 10/19/2024 10:45 AM [facility] CO2 27 21 - 32 mmol/L LAB CHEMISTRY METHOD 10/19/2024 10:45 AM [facility] Anion Gap 8 3 - 11 LAB CHEMISTRY METHOD 10/19/2024 10:45 AM [facility] Glucose 186(H) 70 - 100 mg/dL LAB CHEMISTRY METHOD 10/19/2024 10:45 AM [facility] BUN 12 5 - 25 mg/dL LAB CHEMISTRY METHOD 10/19/2024 10:45 AM [facility] Creatinine 0.94 0.50 - 1.10 mg/dL LAB CHEMISTRY METHOD 10/19/2024 10:45 AM [facility] eGFR 60 >=60 mL/min/1. 73m2 LAB CHEMISTRY METHOD 10/19/2024 10:45 AM [facility] Comment:Calculation based on the??Chronic Kidney Disease Epidemiology Collaboration (CKD-EPI) equation refit??without adjustment for race. BUN/Creatinine Ratio 12.8 LAB CHEMISTRY METHOD 10/19/2024 10:45 AM [facility] Calcium 9.4 8.5 - 10.5 mg/dL LAB CHEMISTRY METHOD 10/19/2024 10:45 AM [facility] AST (SGOT) 17 10 - 42 unit/L LAB CHEMISTRY METHOD 10/19/2024 10:45 AM [facility] ALT (SGPT) 20 10 - 60 unit/L LAB CHEMISTRY METHOD 10/19/2024 10:45 AM [facility] Alkaline Phosphatase 134(H) 42 - 121 unit/L LAB CHEMISTRY METHOD 10/19/2024 10:45 AM [facility] Total Protein 7.3 6.0 - 8.0 g/dL LAB CHEMISTRY METHOD 10/19/2024 10:45 AM [facility] Albumin 3.5 3.2 - 5.0 g/dL LAB CHEMISTRY METHOD 10/19/2024 10:45 AM EST [facility] Total Bilirubin 0.6 0.0 - 1.4 mg/dL LAB CHEMISTRY METHOD 10/19/2024 10:45 AM EST [facility] Blood Venous blood specimen / Unknown Venipuncture / Unknown 10/19/2024 9:07 AM EST 10/19/2024 9:07 AM EST Maliha Pierson MD LAB BLOOD ORDERABLES Final Res ult [facility] [address] [place] [address], * Diabetes Eye Exam (01/04/2024) Diabetes: Annual Retina Eye Exam Abstracted Historical Provider HEALTH MAINTENANCE Final Result * [facility] DEXA AXIAL [facility]LE[facility] (03/25/2022 11:34 AM EDT) Anatomical Region Laterality Modality Mammography 03/25/2022 10:3 3 AM EDT Narrative 03/25/2022 11:34 AM EDT [facility] Diagnostic Imaging Department [address] [place] [address] Patient: ??IJEOMACELESTINA WISE ?/Age/Sex: 1940 - - Unit#: ??[id number] ? Location/Status: ??SPDIMAM/REG CLI ? Mnemonic/Ordering Site: [...] or osteopenia in the lumbar spine. Code 19446 Dictating Physician: ??SERENA HARGROVE MD Electronically Signed by: ??SERENA HARGROVE MD Dic Date/Time: ??03/25/22 1132 Sign date/Time: ??03/25/22 1134 Procedure Note Serena Hargrove MD - 09/08/2022 [facility] Diagnostic Imaging Department [address] [place], [place] [id number] Patient: CELESTINA RAPHAEL /Age/Sex: 1940 - 81 - F Unit#: [id number] Location/Status: [facility] CLI Mnemonic/Ordering Site: MAMDEXAAX/SPMAM Ordering Physician: MALIHA PIERSON MD Dominic Dexa [...] osteoporosis or osteopenia in thelumbar spine. Code 88844 Dictating Physician: SERENA HARGROVE MD Electronically Signed by: SERENA HARGROVE MD Dic Date/Time: 03/25/22 1132 Sign date/Time: 03/25/22 1134 Maliha Pierson MD IMG BI PROCEDURES Final Result from Last 3 Months or Most Recently Relevant [place] [id number] [facility] MEDICARE Care Teams Quantitative Analyst Marketing Relationship Specialty Start Date End Date Maliha Pierson MD [facility] [address] [address] PCP - General Internal Medicine 01/21/21
--- OUTSIDE RECORDS SUMMARY | 2024-11-29 10:48 | XMS_ITS | Clinical Summary ---
Author Organization [facility] Address [address] [place] [address] Care Team Providers Care Senior Instructional Designer Name Role Phone Arnold Rodgers MD Primary Care Provider [phone] Allergies Active Allergy Reactions Criticality Noted Date [...] MOUTH EVERY DAY 3 02/28/2017 Active D3-50 75243 UNITS capsule TAKE ONE CAPSULE BY MOUTH [...] age to complete this topic Care Teams Senior Instructional Designer Relationship Specialty Start Date End Date Arnold Rodgers MD [address] [facility] [place] [address] PCP - General Internal Medicine 05/11/17
--- OUTSIDE RECORDS SUMMARY | 2024-11-29 10:48 | XMS_ITS | Encounter Summary ---
Author Organization [facility] Address [address] [place] [address] Care Team Providers Care Financial Systems Administrator Name Role Phone Arnold Rodgers MD Primary Care Provider [facility] Maliha Beal MD Primary Care Provider [phone] Encounter Details Date Type Department Care Team Description 01/11/2018 Release of Information Medical Records [address] [place] [id number] Abstract, Provider Social History Tobacco Use Types Packs/Day Years Used Date Smoking Tobacco: Former Cigarettes 1 Q uit: 1998 Alcohol Use Standard Drinks/Week Comments Yes 0 (1 standard drink = 0.6 oz pur e alcohol) Sex Assigned at Date Recorded Not on file documented as of this encounter Plan of Treatment Not on file documented as of this encounter Visit Diagnoses Not on filedocumented in this encounter Care Teams Financial Systems Administrator Relationship Specialty Start Date End Date Arnold Rodgers MD PCP - General Internal Medicine 01/02/18 01/20/21 Maliha Pierson MD PCP - General Internal Medicine 01/21/21 documented as of this encounter
--- OUTSIDE RECORDS SUMMARY | 2024-11-29 10:48 | XMS_ITS | Clinical Summary ---
Author Organization [facility] Address [address] [place] [address] Care Team Providers Care Studio Designer Name Role Phone Maliha Pierson MD Primary Care Provider [phone] Allergies Active Allergy Reactions Severity Noted Date Comments Oxycodone Hcl OTHER High 04/13/2017 Sulfa Drugs Hives/Urticaria High 12/16/2016 Medications Medication Sig Dispensed Refills Start Date End Date Status fluticasone (FLONASE) 50 MCG/ACT nasal spray One spray each nostril once a day 3 Bottle 3 01/09/2018 Active Ipratropium-Albutero l (DUONEB) 0.5-2.5 (3) MG/3ML SolutionIndications: Asthma, unspecified asthma severity, unspecified whether complicated, unspecified whether persistent,Overlap syndrome (HCC),History of pulmonary embolism,Supplementa l oxygen dependent,Obstructiv e sleep apnea syndrome,Chronic obstructive pulmonary disease, unspecified COPD type ([facility]),Former smoker,At risk for cancer Inhale 3 mL into the lungs 4 times daily as needed (short of breath or wheezing). COPD J44.9 120 Vial 6 04/17/2018 Active Fluticasone Furoate-Vilanterol (BREO ELLIPTA) 200-25 MCG/INH AEROSOL POWDER,BREATH ACTIVATED Inhale 1 Puff into the lungs daily. 3 Each 3 01/12/2019 Active ALBUTEROL SULFATE 108 (90 Base) MCG/ACT Aero Soln Inhale 2 Puffs into the lungs every 4 hours as needed for Wheezing for up to 30 days. 1 g 1 08/26/2022 Active triamcinolone (KENALOG) 0.1 % cream Apply locally twice a day 60 g 4 10/13/2022 Active glucose monitoring kit (FREESTYLE) monitoring kit 1 Device by Does not apply route 2 times daily for 360 days. E11.9 1 Kit 0 11/03/2022 Active FreeStyle Lancets Misc 1 Device by Does not apply route 2 times daily. E11.9 100 Each 0 11/03/2022 Active Magnesium Cl-Calcium Carbonate (Slow-Mag) 71.5-119 MG Tab EC Take 1 Tablet by mouth 2 times daily. 60 Tablet 5 06/01/2023 Active Blood Glucose Monitoring Suppl (FreeStyle Natural Bridge Lite) w/Device Kit 1 Device by Does not apply route daily. 1 Kit 0 06/01/2023 Active FreeStyle Lancets Misc 1 Each by Does not apply route daily. 100 Each 3 06/01/2023 Active Glucose Blood (FREESTYLE LITE) Strip 1 Strip by In Vitro route daily. 100 Strip 3 06/01/2023 Active metformin (GLUCOPHAGE) 1000 MG tablet TAKE 1 TABLET BY MOUTH TWICE DAILY WITH MEALS 180 Tablet 3 09/06/2023 Active ALBUTEROL SULFATE (ProAir HFA) 108 (90 Base) MCG/ACT Aero Soln Inhale 2 Puffs into the lungs every 6 hours as needed for Cough or Wheezing. 8.5 g 4 11/01/2023 Active Fluticasone Furoate-Vilanterol (Breo Ellipta) 200-25 MCG/ACT AEROSOL POWDER,BREATH ACTIVATED Inhale 1 Puff into the lungs daily. 3 Each 0 11/01/2023 Active montelukast (SINGULAIR) 10 MG tablet TAKE 1 TABLET BY MOUTH AT BEDTIME 90 Tablet 0 01/11/2024 Active metoprolol (LOPRESSOR) 100 MG tablet Take 1 Tablet by mouth daily. 90 Tablet 1 01/18/2024 Active allopurinol (ZYLOPRIM) 100 MG tablet Take 1 Tablet by mouth 2 Times Daily. 180 Tablet 1 01/18/2024 Active Dulaglutide (Trulicity) 0.75 MG/0.5ML Solution Pen-injector Inject 0.75 mg as directed once a week. 6 mL 1 01/18/2024 Active amlodipine (NORVASC) 10 MG tablet Take 1 Tablet by mouth daily. 90 Tablet 2 01/20/2024 Active atorvastatin (LIPITOR) 20 MG tablet Take 1 Tablet by mouth daily for 360 days. 90 Tablet 3 01/20/2024 01/14/2025 Active digoxin (LANOXIN) 125 MCG tablet TAKE 1 TABLET BY MOUTH DAILY 90 Tablet 1 02/20/2024 Active Apixaban (Eliquis) 5 MG Tab Take 5 mg by mouth 2 times daily. 180 Tablet 3 06/21/2024 Active cloNIDine 0.1 MG/24HR PATCH WEEKLY Place 0.1 mg onto the skin once a week. 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 Obstructive sleep apnea syndrome 017 Diabetes mellitus type 2, uncomplicated 07/08/2017 Atrial fibrillation 07/04/2017 Hyperlipidemia 07/04/2017 Hypertension 07/04/2017 Memory loss 07/04/2017 Recurrent urinary tract infection 2016 Vitamin D deficiency 07/04/2017 Immunizations Name Administration Dates Next Due Influenza Vaccine-preservati ve Free-quadrivalent 4 Years 06/01/2023 Influenza vaccine high dose age 65 and over 12/2023,05/30/2017 Social History Tobacco Use Types Packs/Day Years Used Date Smoking Tobacco: Former Cigarettes 1 Q uit: 1998 Smokeless Tobacco: Former Quit: 1998 Tobacco Cessation:Counseling Given: Not Answered Alcohol Use Standard Drinks/Week Comments Yes 0 (1 standard drink = 0.6 oz pur e alcohol) Sex Assigned at Date Recorded Not on file Last Filed Vital Signs Vital Sign Reading Time Taken Comments Blood Pressure 148/70 06/22/2024 2:49 PM EDT Pulse 73 06/22/2024 2:49 PM EDT Temperature 36.4 ??C (97.5 ??F) 06/22/2024 2:49 PM ED T Respiratory Rate 12 07/17/2019 2:33 PM EDT Oxygen Saturation 97% 06/22/2024 2:49 PM EDT Inhaled Oxygen Concentration - - Weight 75.3 kg (166 lb) 06/22/2024 2:49 PM EDT Height 167.6 cm (5' 6 ) 01/20/2024 1:54 PM EDT Body Mass Index 26.79 01/20/2024 1:54 PM EDT Plan of Treatment Health Maintenance Due Date Last Done Comments Covid-19 Vaccine (#1) 1940 DIABETES: ANNUAL FOOT EXAM 1958 DIABETES: ANNUAL URINE PROTE IN TEST (MICROALBUMIN) 1958 DTAP/TDAP/TD (1 - Tdap) 1959 SHINGLES VACCINE (1 of 2) 1990 PNEUMOCOCCAL VACCINE (1 - PCV) 2005 DIABETES: BLOOD SUGAR CONTRO L TEST (HGBA1C) 02/21/2024 11/21/2023, 05/18/2023, 10/12/2022, Additional history exists BONE DENSITY SCREENING 03/25/2024 03/25/2022 DIABETES/HEART DISEASE: JEFFREY GALLEGOS CHOLESTEROL (LDL) 05/18/2024 05/18/2023, 10/12/2022, 05/08/2021 BMI CHECK/ADVISE 09/19/2024 06/22/2024, 11/2023, 06/01/2023, Additional history exists DIABETES: ANNUAL EYE EXAM 01/03/20252023, 10/26/2022, 10/21/2021 MAMMOGRAM 05/18/2025 05/18/2024, 02/18, 02/25/2022, Additional history exists INFLUENZA Completed 06/22/2024, 05/20, 05/30/2017 Care Teams Studio Designer Relationship Specialty Start Date End Date Maliha Pierson MD PCP - General Internal Medicine 01/21/21
--- OUTSIDE RECORDS SUMMARY | 2024-11-29 10:48 | XMS_ITS | Encounter Summary ---
Author Organization [facility] Address [address] [place] [address] Care Team Providers Care Imagery Intelligence Name Role Phone Maliha Pierson MD Primary Care Provider [phone] Encounter Details Date Type Department Care Team Description 02/19/2022 Pt. Non Urgent Medical Question Internal Medicine - [address], [address] [place] [address] Maliha Pierson MD [address] [place] [id number] Social History Tobacco Use Types Packs/Day Years [...] on filedocumented in this encounter Care Teams Imagery Intelligence Relationship Specialty Start Date End Date Maliha Pierson MD PCP - General Internal Medicine 01/21/21 documented as of this encounter
--- OUTSIDE RECORDS SUMMARY | 2024-11-29 10:48 | XMS_ITS | Encounter Summary ---
Author Organization [facility] Address [address] [place] [address] Care Team Providers Care Deck Officer Name Role Phone Arnold Rodgers MD Primary Care Provider [facility] Maliha Beal MD Primary Care Provider [phone] Encounter Details Date Type Department Care Team Description 03/18/2018 SCAN Medical Records [address] [place] [id number] Abstract, Provider Social History Tobacco Use Types [...] on filedocumented in this encounter Care Teams Deck Officer Relationship Specialty Start Date End Date Arnold Rodgers MD PCP - General Internal Medicine 01/02/18 01/20/21 Maliha Pierson MD PCP - General Internal Medicine 01/21/21 documented as of this encounter
--- OUTSIDE RECORDS SUMMARY | 2024-11-29 10:48 | XMS_ITS | Encounter Summary ---
Author Organization Formerly [facility] Address [address] [place] [address] Care Team Providers Care Account Support Associate Name Role Phone Maliha Pierson MD Primary Care Provider [phone] Encounter Details Date Type Department Care Team Description 02/24/2022 Mixing Picker Tender Report Medical Records [address] [place] [id number] Wallace Ansari MD Social History Tobacco Use Types Packs/Day Years [...] on filedocumented in this encounter Care Teams Account Support Associate Relationship Specialty Start Date End Date Maliha Pierson MD PCP - General Internal Medicine 01/21/21 documented as of this encounter
--- OUTSIDE RECORDS SUMMARY | 2024-11-29 10:48 | XMS_ITS | Encounter Summary ---
Author Organization [facility] Address [address] [place] [address] Care Team Providers Care Student Ministries Director Name Role Phone Maliha Pierson MD Primary Care Provider [phone] Reason for Visit * Reason Onset Date Comments Form 06/29/2024 Deisy Meneses Encounter Details Date Type Department Care Team Description 06/29/2024 Telephone Internal Medicine - [address], [address] [place] [address] Maliha Pierson MD [address] [place] [phone] Form (Deisy Meneses) Social History Tobacco Use Types Packs/Day Years Used Date Smoking Tobacco: Former Cigarettes 1 Q uit: 1998 Smokeless Tobacco: Former Quit: 1998 Alcohol Use Standard Drinks/Week Comments Yes 0 (1 standard drink = 0.6 oz pur e alcohol) Sex Assigned at Date Recorded Not on file documented as of this encounter Miscellaneous Notes * Telephone Encounter - Ivana Brandon - 06/29/2024 12:39 PM EDT Deisy Meneses prescription template, given to 's [place]. documented in this encounter Plan of Treatment Not on file documented as of this encounter Visit Diagnoses Not on filedocumented in this encounter Care Teams Student Ministries Director Relationship Specialty Start Date End Date Maliha Pierson MD PCP - General Internal Medicine 01/21/21 documented as of this encounter
--- OUTSIDE RECORDS SUMMARY | 2024-11-29 10:48 | XMS_ITS | Encounter Summary ---
Author Organization [facility] Address [address] [place] [address] Care Team Providers Care Varitypist Name Role Phone Maliha Pierson MD Primary Care Provider Encounter Details Date Type Department Care Team (Late st Contact Info) Description 11/07/2024 Telephone Internal Medicine - [place] [address] [address] [place] [phone] Maliha Pierson MD [address] [facility] [address] [place] [phone] Social History Tobacco Use Types Packs/Day Years [...] Deanna Escalera - 11/07/2024 10:18 AM EST [place] [facility] is calling on behalf of pt, Pt wants to change proair inhaler to breo elipta for her asthma? Is requesting this script to be sent to [facility] Please advise? AVA 10/23/24 NOV 04/22/25 documented in this encounter Plan of Treatment Upcoming Encounters Date Type Department Care Team ([facility] st Contact Info) Description 04/22/2025 1:00 PM EDT Office Visit Internal Medicine - [place] [address] [facility] [address] [place] [address] Maliha Pierson MD [address] [facility] [address] [place] [address] documented as of this encounter Visit Diagnoses Not on filedocumented in this encounter Discontinued Medications Medication Sig Discontinue Reason Start Date End Da te fluticasone furoate-vilanteroL (BREO ELLIPTA) 200-25 mcg/dose inhaler Inhale by mouth. Inhale 1 Puff into the lungs daily. - Inhalation Reorder 11/08/2024 documented as of this encounter Care Teams Varitypist Relationship Specialty Start Date End Date Maliha Pierson MD [address] [phone] PCP - General Internal Medicine 01/21/21 documented as of this encounter
--- OUTSIDE RECORDS SUMMARY | 2024-11-29 10:48 | XMS_ITS | Encounter Summary ---
Author Organization [facility] Address [facility] [place] [address] Care Team Providers Care Second Cutter Name Role Phone Maliha Pierson MD Primary Care Provider [phone] Encounter Details Date Type Department Care Team Description 04/01/2022 Release of Information Medical Records [address] [place] [id number] Abstract, Provider Social History Tobacco Use Types [...] on filedocumented in this encounter Care Teams Second Cutter Relationship Specialty Start Date End Date Maliha Pierson MD PCP - General Internal Medicine 01/21/21 documented as of this encounter
--- OUTSIDE RECORDS SUMMARY | 2024-11-29 10:48 | XMS_ITS | Encounter Summary ---
Author Organization [facility] Address [address] [place] [address] Care Team Providers Care Asphalt Mixing Machine Operator Name Role Phone Maliha Pierson MD Primary Care Provider [phone] Encounter Details Date Type Department Care Team Description 02/19/2022 Pt. Non Urgent Medical Question Internal Medicine - [address], [address] [place] [address] Maliha Pierson MD [address] [place] [phone] Social History Tobacco Use Types Packs/Day [...] on filedocumented in this encounter Care Teams Asphalt Mixing Machine Operator Relationship Specialty Start Date End Date Maliha Pierson MD PCP - General Internal Medicine 01/21/21 documented as of this encounter
--- OUTSIDE RECORDS SUMMARY | 2024-11-29 10:48 | XMS_ITS | Encounter Summary ---
Author Organization [facility] Address [address] [place] [address] Care Team Providers Care Physician Compensation Analyst Name Role Phone Maliha Pierson MD Primary Care Provider [phone] Encounter Details Date Type Department Care Team Description 07/02/2024 Orders Only Medical Records [address] [place] [address] Maliha Pierson MD [address] [place] [phone] Social History Tobacco Use Types Packs/Day [...] Name Priority Date/Time Associated Diagnosis Comments OUTSIDE MAMMO Routine 05/18/2024 documented in this encounter Results * OUTSIDE MAMMO (05/18/2024) Maliha Pierson MD RADIOLOGY documented in this encounter Visit Diagnoses Not on filedocumented in this encounter Care Teams Physician Compensation Analyst Relationship Specialty Start Date End Date Maliha Pierson MD PCP - General Internal Medicine 01/21/21 documented as of this encounter
--- OUTSIDE RECORDS SUMMARY | 2024-11-29 10:48 | XMS_ITS | Encounter Summary ---
Author Organization [facility] Address [address] [place] [address] Care Team Providers Care Head Host/Hostess Name Role Phone Arnold Rodgers MD Primary Care Provider Maliha Pleitez MD Primary Care Provider [phone] Reason for Visit * Reason Onset Date Comments Faxed Refill 01/12/2019 breo ellipta Encounter Details Date Type Department Care Team Description 01/12/2019 Refill Pulmonology - [place] [address] [facility] [address] [place] [address] Shanel Martino MD [address] [place] [phone] Faxed Refill (breo ellipta) Social History Tobacco Use Types Packs/Day Years Used Date Smoking Tobacco: Former Cigarettes 1 Q uit: 1998 Smokeless Tobacco: Former Quit: 1998 Alcohol Use Standard Drinks/Week Comments Yes 0 (1 standard drink = 0.6 oz pur e alcohol) Sex Assigned at Date Recorded Not on file documented as of this encounter Miscellaneous Notes * Telephone Encounter - Lubna Mggina - 01/12/2019 1:08 PM EDT Patient would like script to be: E-PRESCRIBED/FAXED TO PHARMACY WHEN WAS THE PATIENT'S LAST APPOINTMENT WITH THE PRESCRIBING PROVIDER? 06/01/18 w/Dr Martino Does patient have an upcoming appointment? no (THE MEDICATION REQUESTED IS ON THE MED LIST ABOVE) All of the medications requested were on the CURRENT MEDS list Did you check the Pharmacy information above?: YES Patient wants: 90 -day supply Is this a mail order prescription request ? NO Patients current insurance carrier is: Payor: [employer] / Plan: [employer] $10 LUIGI / Product Type: OTHER documented in this encounter Plan of Treatment Not on file documented as of this encounter Visit Diagnoses Not on filedocumented in this encounter Care Teams Head Host/Hostess Relationship Specialty Start Date End Date Arnold Rodgers MD PCP - General Internal Medicine 01/02/18 01/20/21 Maliha Pierson MD PCP - General Internal Medicine 01/21/21 documented as of this encounter
--- OUTSIDE RECORDS SUMMARY | 2024-11-29 10:48 | XMS_ITS | Encounter Summary ---
Author Organization [facility] Address [address] [place] [address] Care Team Providers Care Acid Operator Name Role Phone Maliha Pierson MD Primary Care Provider [phone] Encounter Details Date Type Department Care Team Description 07/10/2024 Orders Only Radiology - [place] [address] [place] [address] Maliha Pierson MD [address] [place] [phone] Lightheadedness Social History Tobacco Use Types Packs/Day Years [...] Procedure Name Priority Date/Time Associated Diagnosis Comments WY DUPLEX SCAN EXTRACRANIAL ART COMPL BI STUDY Routine 07/10/2024 Lightheadedness documented in this encounter Results * [place]Y DUPLEX SCAN EXTRACRANIAL ART COMPL BI STUDY (07/10/2024) Maliha Pierson MD VASCULAR ULTRASOUND [facility] documented in this encounter Visit Diagnoses Diagnosis Lightheadedness Dizziness and giddiness documented in this encounter Care Teams Acid Operator Relationship Specialty Start Date End Date Maliha Pierson MD PCP - General Internal Medicine 01/21/21 documented as of this encounter
--- OUTSIDE RECORDS SUMMARY | 2024-11-29 10:48 | XMS_ITS | Encounter Summary ---
Author Organization [facility] Address [address] [place] [address] Care Team Providers Care Wafer Mounter Name Role Phone Maliha Pierson MD Primary Care Provider [phone] Reason for Visit * Reason Onset Date Comments LAB WORK 03/29/2023 Encounter Details Date Type Department Care Team Description 03/29/2023 Telephone Internal Medicine - [address], [address] [place], [place] [phone] Maliha Pierson MD [address] [place] [phone] LAB WORK Social History Tobacco Use Types Packs/Day Years Used Date Smoking Tobacco: Former Cigarettes 1 Q uit: 1998 Smokeless Tobacco: Former Quit: 1998 Alcohol Use Standard Drinks/Week Comments Yes 0 (1 standard drink = 0.6 oz pur e alcohol) Sex Assigned at Date Recorded Not on file documented as of this encounter Miscellaneous Notes * Telephone Encounter - Sandie Coombs - 03/30/2023 2:14 PM EDT Pt booked to see you on 06/01/23 * Telephone Encounter - Maliha Pierson MD - 03/30/2023 7:38 AM EDT SHE DOES NOT HAVE UPCOMING APPT WITH ME * Telephone Encounter - Snu Kendall - 03/29/2023 2:28 PM EDT Patient states her accountant auditor asked for pt to contact PCP to have an order added in her current order for labs Digoxin level. documented in this encounter Plan of Treatment Not on file documented as of this encounter Visit Diagnoses Not on filedocumented in this encounter Care Teams Wafer Mounter Relationship Specialty Start Date End Date Maliha Pierson MD PCP - General Internal Medicine 01/21/21 documented as of this encounter
--- OUTSIDE RECORDS SUMMARY | 2024-11-29 10:48 | XMS_ITS | Encounter Summary ---
Author Organization [facility] Address [address] [place] [address] Care Team Providers Care Supervisor Warping Department Name Role Phone Arnold Rodgers MD Primary Care Provider [facility] Maliha Beal MD Primary Care Provider [phone] Encounter Details Date Type Department Care Team Description 11/28/2018 Release of Information Medical Records [address] [place] [id number] Abstract, Provider Social History Tobacco Use Types [...] on filedocumented in this encounter Care Teams Supervisor Warping Department Relationship Specialty Start Date End Date Arnold Rodgers MD PCP - General Internal Medicine 01/02/18 01/20/21 Maliha Pierson MD PCP - General Internal Medicine 01/21/21 documented as of this encounter
--- OUTSIDE RECORDS SUMMARY | 2024-11-29 10:48 | XMS_ITS | Encounter Summary ---
Author Organization [facility] Address [address] [place] [address] Care Team Providers Care Bundler Seasonal Greenery Name Role Phone Maliha Pierson MD Primary Care Provider [phone] Reason for Referral * Imaging (Routine) - Pending Review Specialty Diagnoses / Procedures Referred By Maribell nicole Referred To Contact Radiology Diagnoses Thyroid nodule Procedures US Head Neck Soft Tissue Maliha Pierson MD [address] [address] Phone: tel: fax: [address] [address] Phone: tel: Referral ID Status Reason Start Date Expiration Date V isits Requested Visits Authorized [id number] Pending Review 10/23/2024 10/23/2025 1 1 Reason for Visit * Imaging (Routine) - Pending Review Specialty Diagnoses / Procedures Referred By Maribell nicole Referred To Contact Radiology Diagnoses Thyroid nodule Procedures US Head Neck Soft Tissue Maliha Pierson MD [address] [address] Phone: tel: fax: [address] [phone] Phone: tel: Referral ID Status Reason Start Date Expiration Date V isits Requested Visits Authorized [id number] Pending Review 10/23/2024 10/23/2025 1 1 Encounter Details Date Type Department Care Team (Latest Contact Info) Description 11/28/2024 11:22 AM EDT - 11/28/2024 11:59 PM EDT Hospital Encounter [facility] Ultrasound [address] [place] [phone] Thyroid nodule Discharge Disposition: Home or Self Care Social History Tobacco Use Types Packs/Day Years [...] AM EST documented as of this encounter Medications at Time of Discharge albuterol HFA (PROAIR HFA ; PROVENTIL HFA ; VENTOLIN HFA) 90 mcg/actuation inhaler Inhale 2 Puffs into the lungs every 6 hours as needed for Cough or Wheezing. 11/01/2023 allopurinoL (ZYLOPRIM) 100 mg tablet TAKE 1 TABLET BY MOUTH TWICE DAILY 180 tablet 1 11/01/2024 amLODIPine (NORVASC) 10 mg tablet Take 1 tablet (10 mg total) by mouth 1 (one) time each day. Take 1 Tablet by mouth daily. 90 tablet 1 11/22/2024 apixaban (ELIQUIS) 5 mg tablet TAKE 1 TABLET BY MOUTH TWICE DAILY 04/19/2021 atorvastatin (LIPITOR) 20 mg tablet Take 1 Tablet by mouth daily for 360 days. 01/20/2024 blood-glucose meter kit 1 Device by Does not apply route daily. - Does not apply cholecalciferol (Vitamin D3) 50 mcg (2,000 unit) tablet Take 1 tablet (2,000 Units total) by mouth 1 (one) time each day. 90 tablet 2 10/19/2024 cholestyramine (Questran) 4 gram packet Take 1 packet (4 g total) by mouth 3 (three) times a day with meals. 90 packet 3 10/23/2024 cloNIDine (QZIYLMPK-GEZ-8) 0.1 mg/[address] 0.1 mg onto the skin once a week. 06/22/2024 digoxin (LANOXIN) 125 mcg (0.125 mg) tablet TAKE 1 TABLET BY MOUTH DAILY 90 tablet 1 09/25/2024 dulaglutide (Trulicity) 0.75 mg/0.5 mL pen injector injection Inject 0.75 mg as directed once a week. 01/18/2024 fluticasone furoate-vilanter oL (BREO ELLIPTA) 200-25 mcg/dose inhaler Inhale 1 puff by mouth 1 (one) time each day. Inhale 1 Puff into the lungs daily. - Inhalation 1 each 3 11/08/2024 FREESTYLE LANCETS MISC 1 Each by Does not apply route daily. - Does not apply glucose blood test strip by Other route. 1 Strip by In Vitro route daily. - In Vitro ipratropium-albu teroL (DUONEB) 0.5-2.5 mg/3 mL nebulizer solution Inhale 3 mL into the lungs 4 times daily as needed (short of breath or wheezing). COPD J44.9 04/17/2018 losartan (COZAAR) 100 mg tablet losartan 100 mg tablet magnesium chloride (Slow-Mag) 71.5 mg tablet,delayed release (DR/EC) Take 1 Tablet by mouth 2 times daily. - Oral magnesium oxide 400 mg magnesium capsule Take 1 capsule by mouth at bedtime. 90 capsule 3 10/19/2024 metFORMIN (GLUCOPHAGE) 1,000 mg tablet TAKE 1 TABLET BY MOUTH TWICE DAILY WITH MEALS 09/06/2023 metoprolol tartrate (LOPRESSOR) 100 mg tablet Take 1 tablet (100 mg total) by mouth 1 (one) time each day. Take 1 Tablet by mouth daily. 90 tablet 1 08/31/2024 montelukast (SINGULAIR) 10 mg tablet TAKE 1 TABLET BY MOUTH AT BEDTIME 01/11/2024 potassium chloride (KLOR-CON M10) 10 mEq CR tablet Take 1 tablet (10 mEq total) by mouth 1 (one) time each day. Tablet may be swallowed whole (do not crush/chew/suck on) OR broken in half and each half swallowed separately OR dissolved (whole tablet) in ~4 ounces of water (allow ~2 minutes to dissolve, stir well and administer immediately). 90 each 2 10/19/2024 traZODone (DESYREL) 50 mg tablet Take 1 tablet (50 mg total) by mouth at bedtime as needed for sleep. 30 tablet 5 10/23/2024 6 documented as of this encounter Discharge Disposition Disposition Code Departure Means Destination Home or Self Care documented in this encounter Plan of Treatment Upcoming Encounters Date Type Department Care Team (Late st Contact Info) Description 04/22/2025 1:00 PM EDT Office Visit Internal Medicine - [place] [address] [facility] [address] [place] [address] Maliha Pierson MD [address] [facility] [address] [place] [phone] documented as of this encounter Procedures Procedure Name Priority Date/Time Associated Diagnosis Comments US HEAD NECK SOFT TISSUE Routine 11/28/2024 11:45 AM EDT Thyroid nodule documented in this encounter Results * US Head Neck Soft Tissue [...] Signed Date: 11/28/2024 14:41 ET Workstation ID: [id number] Transcribed By: Self Edit Transcribed Date: 11/28/2024 [...] Signed Date: 11/28/2024 14:41 ET Workstation ID: [id number] Transcribed By: Self Edit Transcribed Date: 11/28/2024 14:28 ET us Maliha Pierson MD IMG US PROCEDURES Final Result documented in this encounter Visit Diagnoses Diagnosis Thyroid nodule Nontoxic uninodular goiter documented in this encounter Care Teams Bundler Seasonal Greenery Relationship Specialty Start Date End Date Maliha Pierson MD [address] [place] [phone] PCP - General Internal Medicine 01/21/21 documented as of this encounter
== END 2024-11-28 09:18 | disposition home or self-care (01) ==
LOC: HO.HOSX 09:17
PROVIDERS: Visit Provider Orthopaedic Surgery
DX: M25.811 Other specified joint disorders, right shoulder (principal); M25.511 Pain in right shoulder
CPT/HCPCS: 20610; 73030; 99212; J1010; J2003

== ENCOUNTER 2024-11-28 09:37 | Outpatient (AMB) | payer MEDICARE, SELFPAY ==
[2024-11-28 09:52] VITALS: BMI 26.6
--- NOTE | 2024-11-28 09:52 | MHC.OFFVIS ---
Vital Signs 11/28/24 09:52 Height 5 ft 6 in Weight 165 lb BMI 26.6 Intake Visit Reasons: New prob- Right shoulder pain, limited ROM Intake Note: Callie is an 84 year old right hand dominant female who presents today for a new problem visit with complaints of right shoulder pain and limited ROM. Patient reports pain started 6 weeks ago. Denies prior injuries or surgeries to her right shoulder. Patient states she thinks she has a frozen shoulder, making it difficult to participate in ADL's. Has tried home exercises, water aerobics. She has not had a cortisone injection. She would like to avoid surgery if possible. Allergies Sulfa (Sulfonamide Antibiotics) [SULFA (SULFONAMIDE ANTIBIOTICS)] Allergy (Mild, Verified 11/28/24 09:55) HIVES Iodinated Contrast Media [CONTRAST, IV] Allergy (Unknown, Verified 11/28/24 09:55) anaphylaxis oxycodone [OXYCODONE] Adverse Reaction (Unknown, Verified 11/28/24 09:55) hallucinations Medication List - Last Reconciled 11/28/24 by Frankie Perez MD albuterol sulfate 90 mcg/actuation inhalation allopurinol 100 mg PO BID amlodipine 7.5 mg PO DAILY apixaban 5 mg PO BID 90 days atorvastatin 20 mg PO BEDTIME digoxin 125 mcg PO DAILY dulaglutide 1.5 mg subcut QWEEK fluticasone furoate-vilanterol 200-25 mcg/dose (Breo Ellipta) 1 ea inhalation DAILY losartan 100 mg PO DAILY 30 days metformin 1,000 mg PO BID metoprolol succinate ER 100 mg PO DAILY montelukast 10 mg PO BEDTIME [facility] Medical History Chronic obstructive pulmonary disease, unspecified Type 2 diabetes mellitus with unspecified complications Essential hypertension Other and unspecified hyperlipidemia Permanent atrial fibrillation Surgical History History of total hip arthroplasty History of arthroplasty of knee Family History Father Myocardial infarction Mother Hypertension Social History Alcohol intake: current Alcohol intake frequency: holidays/special occasions only Physical Exam Vital Signs: BMI result Body Mass Index 26.6 Const Other: Well-nourished well-developed very friendly female awake alert and oriented x3 in no acute distress Extrem Other: Right shoulder examination shows slightly decreased active and passive range of motion when compared to her left shoulder, 4+ out of 5 strength with supraspinatus testing, positive impingement signs, no instability Office Procedures AMB Joint Injection/Aspiration Joint Injection/Aspiration Primary Site: right shoulder Prep: site was prepped using aseptic technique Injected: 40 mg of, DepoMedrol and 1% plain lidocaine Procedure: The patient tolerated the procedure well Coding - Large joint Procedure code (CPT) selection complete Results Reviewed Results Reviewed: X-rays of the patient's right shoulder taken today show moderate to severe acromioclavicular joint narrowing, a type 2 acromion, no acute bony abnormalities Assessment & Plan Assessment & Plan (1) Impingement of right shoulder: Code(s): M25.811 - Other specified joint disorders, right shoulder Category: Medical Plan Ms. Raphael presents with right shoulder pain due to impingement syndrome, acromioclavicular joint arthritis and adhesive capsulitis. The risks and benefits of a right shoulder cortisone injection were discussed at length with the patient. The patient wished to proceed. She tolerated the injection well. She will continue with her exercise program. She will contact me prior to her follow-up appointment in 3 months should any questions or concerns arise. Feel free to call me at any time should questions regarding orthopedic management arise. I spent 22 minutes in reviewing the patient's records and imaging studies, seeing the patient and documenting in the medical record. Orders: Orders AMB Joint Injection/Aspiration Today M25.811 - Other specified joint disorders, right shoulder XR shoulder RT min 2V Today M25.511 - Pain in right shoulder Coding Level of Care Code Est Pt Level 3 (16320) Complex EM visit Add On G2211 Diagnoses Impingement of right shoulder M25.811 CPT Codes Coding - Large joint: 56997 - Large joint ([id number])
--- OUTSIDE RECORDS SUMMARY | 2024-11-28 10:32 | XMS_ITS | Encounter Summary ---
Author Organization [facility] Address [address] [place] [address] Care Team Providers Care Spice Mixer Name Role Phone Maliha Pierson MD Primary Care Provider [phone] Encounter Details Date Type Department Care Team (Late st Contact Info) Description 11/07/2024 Telephone Internal Medicine - [place] [address] [place] [phone] Maliha Pierson MD [address] [place] [phone] Social History Tobacco Use Types Packs/Day Years Used Date Smoking Tobacco: Former Cigarettes Q uit: 09/19/1998 Smokeless Tobacco: Former Quit: 09/19/1998 Alcohol Use Standard Drinks/Week Comments Yes 0 (1 standard drink = 0.6 oz pur e alcohol) Comments Unknown Sex and Gender Information Value Date Recorded Sex Assigned at Female 11/14/2024 10:34 AM EST Legal Sex Female 8:09 PM EST Gender Identity Female 11/14/2024 10:34 AM EST Sexual Orientation Straight 11/14/2024 10 :34 AM EST documented as of this encounter Ordered Prescriptions Prescription Sig Dispense Quantity Refills Last Filled Start Date End Date fluticasone furoate-vilanteroL (BREO ELLIPTA) 200-25 mcg/dose inhaler Inhale 1 puff by mouth 1 (one) time each day. Inhale 1 Puff into the lungs daily. - Inhalation 1 each 3 11/08/2024 documented in this encounter Progress Notes * Trini Chambers MA - 11/09/2024 2:19 PM EST Spoke to patient and she stated she received inhaler * Maliha Pierson MD - 11/08/2024 7:06 PM EST Breo sent * Amos Pinto MA - 11/08/2024 8:42 AM EST Please advise * Deanna Escalera - 11/07/2024 10:18 AM EST [place] [facility] is calling on behalf of pt, Pt wants to change proair inhaler to breo elipta for her asthma? Is requesting this script to be sent to [facility] Please advise? AVA 10/23/24 NOV 04/22/25 documented in this encounter Plan of Treatment Upcoming Encounters Date Type Department Care Team (Late st Contact Info) Description 11/28/2024 11:30 AM EDT Appointment [facility] Ultrasound [address] [place] [address] 04/22/2025 1:00 PM EDT Office Visit [place] [address] [phone] Maliha Pierson MD [address] [phone] documented as of this encounter Visit Diagnoses Not on filedocumented in this encounter Discontinued Medications Medication Sig Discontinue Reason Start Date End Da te fluticasone furoate-vilanteroL (BREO ELLIPTA) 200-25 mcg/dose inhaler Inhale by mouth. Inhale 1 Puff into the lungs daily. - Inhalation Reorder 11/08/2024 documented as of this encounter Care Teams Spice Mixer Relationship Specialty Start Date End Date Maliha Pierson MD [address] [place] [phone] PCP - General Internal Medicine 01/21/21 documented as of this encounter
--- OUTSIDE RECORDS SUMMARY | 2024-11-28 10:32 | XMS_ITS | Clinical Summary ---
Author Organization [facility] Address [address] [place] [address] Phone Care Team Providers Care Floorperson Name Role Phone Maliha Pierson MD Primary Care Provider [phone] Allergies Active Allergy Reactions Criticality Noted Date Comments Oxycodone Hcl Other High 04/13/2017 Sulfa (Sulfonamide Antibiotics) Hives High 11/19 Medications albuterol HFA (PROAIR HFA ; PROVENTIL HFA ; VENTOLIN HFA) 90 mcg/actuation inhaler Inhale 2 Puffs into the lungs every 6 hours as needed for Cough or Wheezing. 11/01/19 24 Active apixaban (ELIQUIS) 5 mg tablet TAKE 1 TABLET BY MOUTH TWICE DAILY 04/19/20 21 Active atorvastatin (LIPITOR) 20 mg tablet Take 1 Tablet by mouth daily for 360 days. 01/20/20 24 025 Active cloNIDine (CATAPRES-TTS -1) 0.1 mg/[address] 0.1 mg onto the skin once a week. 06/22/20 24 Active dulaglutide (Trulicity) 0.75 mg/0.5 mL pen injector injection Inject 0.75 mg as directed once a week. 01/18/20 24 Active ipratropium-a lbuteroL (DUONEB) 0.5-2.5 mg/3 mL nebulizer solution Inhale 3 mL into the lungs 4 times daily as needed (short of breath or wheezing). COPD J44.9 04/17/20 18 Active losartan (COZAAR) 100 mg tablet losartan 100 mg tablet Active metFORMIN (GLUCOPHAGE) 1,000 mg tablet TAKE 1 TABLET BY MOUTH TWICE DAILY WITH MEALS 09/06/20 23 Active montelukast (SINGULAIR) 10 mg tablet TAKE 1 TABLET BY MOUTH AT BEDTIME 01/11/20 24 Active magnesium chloride (Slow-Mag) 71.5 mg tablet,delaye d release (DR/EC) Take 1 Tablet by mouth 2 times daily. - Oral Active blood-glucose meter kit 1 Device by Does not apply route daily. - Does not apply Active FREESTYLE LANCETS MISC 1 Each by Does not apply route daily. - Does not apply Active glucose blood test strip by Other route. 1 Strip by In Vitro route daily. - In Vitro Active metoprolol tartrate (LOPRESSOR) 100 mg tablet Take 1 tablet (100 mg total) by mouth 1 (one) time each day. Take 1 Tablet by mouth daily. 90 tablet 1 08/31/20 24 Active digoxin (LANOXIN) 125 mcg (0.125 mg) tablet TAKE 1 TABLET BY MOUTH DAILY 90 tablet 1 09/25/19 25 Active magnesium oxide 400 mg magnesium capsule Take 1 capsule by mouth at bedtime. 90 capsule 3 10/19/19 25 Active potassium chloride (KLOR-CON M10) 10 mEq CR tablet Take 1 tablet (10 mEq total) by mouth 1 (one) time each day. Tablet may be swallowed whole (do not crush/chew/suc k on) OR broken in half and each half swallowed separately OR dissolved (whole tablet) in ~4 ounces of water (allow ~2 minutes to dissolve, stir well and administer immediately). 90 each 2 10/19/19 25 Active Additional Information Patient not taking.Reported on 10/23/2024 cholecalcifer ol (Vitamin D3) 50 mcg (2,000 unit) tablet Take 1 tablet (2,000 Units total) by mouth 1 (one) time each day. 90 tablet 2 10/19/19 25 Active traZODone (DESYREL) 50 mg tablet Take 1 tablet (50 mg total) by mouth at bedtime as needed for sleep. 30 tablet 5 10/23/19 25 026 Active cholestyramin e (Questran) 4 gram packet Take 1 packet (4 g total) by mouth 3 (three) times a day with meals. 90 packet 3 10/23/19 25 026 Active allopurinoL (ZYLOPRIM) 100 mg tablet TAKE 1 TABLET BY MOUTH TWICE DAILY 180 tablet 1 11/01/19 25 Active fluticasone furoate-vilan teroL (BREO ELLIPTA) 200-25 mcg/dose inhaler Inhale 1 puff by mouth 1 (one) time each day. Inhale 1 Puff into the lungs daily. - Inhalation 1 each 3 11/08/19 25 Active amLODIPine (NORVASC) 10 mg tablet Take 1 tablet (10 mg total) by mouth 1 (one) time each day. Take 1 Tablet by mouth daily. 90 tablet 1 11/23/19 25 Active allopurinoL (ZYLOPRIM) 100 mg tablet TAKE 2 TABLETS BY MOUTH EVERY DAY 01/21/20 21 025 Discontinued amLODIPine (NORVASC) 10 mg tablet Take 1 Tablet by mouth daily. 01/20/20 24 025 Discontinued fluticasone furoate-vilan teroL (BREO ELLIPTA) 200-25 mcg/dose inhaler Inhale by mouth. Inhale 1 Puff into the lungs daily. 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 Obstructive sleep apnea syndrome 07/12/2017 Diabetes mellitus type 2, uncomplicated 07/08/20 Atrial fibrillation 07/04/2017 Hyperlipidemia 07/04/2017 Hypertension 07/04/2017 Memory loss 07/04/2017 Recurrent urinary tract infection 07/04/2017 Vitamin D deficiency 07/04/2017 Trochanteric bursitis of right hip 06/16/2017 Resolved Problems Problem Noted Date Diagnosed Date Resolved Date History of hip replacement 01/03/2018 1 10/21/2023 Encounters Date Type Department Care Team Description 11/07/2024 Telephone Internal Medicine [facility] [address] [facility] [address] [place] [address] Maliha Pierson MD 10/23/2024 2:30 PM EST Office Visit Internal Medicine [facility] [address] [facility] [address] [place] [address] Maliha Pierson MD Thyroid nodule (Primary Dx); Insomnia, unspecified type; Primary hypertension; Atrial fibrillation, unspecified type (CMS/HCC); Mixed hyperlipidemia; Hypomagnesemia from Last 3 Months Immunizations Name Administration Dates Next Due Influenza Quadravalent, MDCK , 0.5ml, preservative free (Flucelvax) 6mo and older 06/01/2023 Influenza trivalent, 0.5mL (Fluad) 65yo and olde r 06/22/2024,05/30/2017 Surgical History Surgery Date Site/Laterality Comments HIP ARTHROPLASTY PROCEDURE: HISTORICAL HIP REPLACEMENT CATARACT EXTRACTION PROCEDURE: HISTORICAL CATARACT REMOVAL Medical History Medical History Date Comments Supplemental oxygen dependent 01/03/2018 DX :Supplemental oxygen dependent History of pulmonary embolism 01/03/2018 DX :History of pulmonary embolism History of hip replacement 01/03/2018 DX:Hi story of hip replacement Asthma 07/12/2017 DX:Asthma Atrial fibrillation (CMS/HCC) 07/04/2017 DX :Atrial fibrillation (HCC) Diabetes mellitus type 2, uncomplicated ([facility]/HCC) 07/08/2017 DX:Diabetes mellitus type 2, uncomplicated ([facility]) Hyperlipidemia 07/04/2017 DX:Hyperlipidemi a Hypertension 07/04/2017 DX:Hypertension Memory loss 07/04/2017 DX:Memory loss Obstructive sleep apnea syndrome 07/12/2017 DX:Obstructive sleep apnea syndrome Recurrent urinary tract infection 07/04/2017 DX:Recurrent urinary tract infection Vitamin D deficiency 07/04/2017 DX:Vitamin D deficiency Anxiety 03/31/2018 DX:Anxiety Chronic obstructive pulmonar y disease (CMS/HCC) 07/12/2017 DX:Chronic obstructive pulmo nary disease (HCC); COMMENT: CT Chest from 10/06/[address] Lung Cancer Screening 04/04/2020 will scan into EMR 01/19/2021. Gout 01/16/2021 DX:Gout Insomnia 03/31/2018 DX:Insomnia Social History Tobacco Use Types Packs/Day Years Used Date Smoking Tobacco: Former Cigarettes Q uit: 09/19/1998 Smokeless Tobacco: Former Quit: 09/19/1998 Tobacco Cessation:Counseling Given: Not Answered Alcohol Use Standard Drinks/Week Comments Yes 0 (1 standard drink = 0.6 oz pur e alcohol) Comments Unknown Sex and Gender Information Value Date Recorded Sex Assigned at Female 11/14/2024 10:34 AM EST Legal Sex Female 8:09 PM EST Gender Identity Female 11/14/2024 10:34 AM EST Sexual Orientation Straight 11/14/2024 10 :34 AM EST Obstetrics History Last Filed Vital Signs Vital Sign Reading Time Taken Comments Blood Pressure 130/80 10/23/2024 2:38 PM EST Pulse 72 10/23/2024 2:38 PM EST Temperature 36.2 ??C (97.1 ??F) 10/23/2024 2:38 PM ES T Respiratory Rate - - Oxygen Saturation 98% 10/23/2024 2:38 PM EST Inhaled Oxygen Concentration - - Weight 74.4 kg (164 lb) 10/23/2024 2:38 PM EST Height 167.6 cm (5' 6 ) 01/20/2024 1:54 PM EDT Body Mass Index 26.47 01/20/2024 1:54 PM EDT Plan of Treatment Upcoming Encounters Date Type Department Care Team (Late st Contact Info) Description 11/28/2024 11:30 AM EDT Appointment [facility] Ultrasound [address] [place] [address] 04/22/2025 1:00 PM EDT Office Visit Internal Medicine - [place] [address] [address] Maliha Pierson MD 175 [facility] [address] [place] [address] Health Maintenance Due Date Last Done Comments Diabetes: Annual Foot Exam 1950 DTaP,Tdap,and Td Vaccines (1 - Tdap) 1959 Pneumococcal Vaccine: 50+ Years (1 of 2 - PCV) 1959 Zoster Vaccines (1 of 2) 1990 RSV Immunization Patients 60 + Years Old (1 - 1-dose 75+ series) 2015 Depression Screening 08/26/2022 Falls Risk Assessment 08/26/2022 Medicare Annual Wellness Visit 08/26/2022 Social Influencers of Health Screening 08/26/2022 Diabetes: Annual Urine Albumin-Creatinine Ratio (uACR) 09/03/2022 COVID-19 Vaccine (1 - 2023-2 5 season) 2024 Diabetes: Annual Retina Eye Exam 01/03/2025 01/04/2024 Diabetes: Blood Sugar Contro l Test (HGBA1C) 04/18/2025 10/19/2024, 11/21/2023 Diabetes: Annual GFR (Glomerular Filtration Rate) 10/19/2025 10/19/2024, 11/21/2023 Hypertension/CHF/CAD Annual BMP Blood Test 10/19/2025 10/19/2024, 11/21/2023 Cholesterol Screening (Lipid Panel) 10/19/2029 10/19/2024, 05/18/2023 Osteoporosis Screening (Bone Density Screening) 03/25/2032 03/25/2022 Influenza Vaccine Completed 06/22/2024, 06/01/2023, 05/30/2017 HIB Vaccines Aged Out No longer eligi ble based on patient's age to complete this topic HPV Vaccines Aged Out No longer eligi ble based on patient's age to complete this topic Hepatitis A Vaccines Aged Out No long er eligible based on patient's age to complete this topic Hepatitis B Vaccines Aged Out No long er eligible based on patient's age to complete this topic IPV Vaccines Aged Out No longer eligi ble based on patient's age to complete this topic MMR Vaccines Aged Out No longer eligi ble based on patient's age to complete this topic Meningococcal ACWY Vaccine Aged Out N o longer eligible based on patient's age to complete this topic Meningococcal B Vacine Aged Out No lo nger eligible based on patient's age to complete this topic RSV Immunization Patients Under 20 months Aged Out No longer eligible b ased on patient's age to complete this topic Varicella Vaccines Aged Out No longer eligible based on patient's age to complete this topic Procedures Procedure Name Priority Date/Time Associated Diagnosis Comments CBC WITH AUTO DIFFERENTIAL Routine 10/19/2024 9:07 AM EST Mixed hyperlipidemia Atrial fibrillation (CMS/HCC) Essential hypertension, malignant Diabetes mellitus (CMS/HCC) VITAMIN D 25 HYDROXY Routine 10/19/2024 9:07 AM EST Mixed hyperlipidemia Atrial fibrillation (CMS/HCC) Essential hypertension, malignant Diabetes mellitus (CMS/HCC) COMPREHENSIVE METABOLIC PANEL Routine 10/19/2024 9:07 AM EST Mixed hyperlipidemia Atrial fibrillation (CMS/HCC) Essential hypertension, malignant Diabetes mellitus (CMS/HCC) CBC AND DIFFERENTIAL Routine 10/19/2024 9:07 AM EST Mixed hyperlipidemia Atrial fibrillation (CMS/HCC) Essential hypertension, malignant Diabetes mellitus (CMS/HCC) MAGNESIUM Routine 10/19/2024 9:07 AM EST Mixed hyperlipidemia Atrial fibrillation (CMS/HCC) Essential hypertension, malignant Diabetes mellitus (CMS/HCC) HEMOGLOBIN A1C Routine 10/19/2024 9:07 AM EST Mixed hyperlipidemia Atrial fibrillation (CMS/HCC) Essential hypertension, malignant Diabetes mellitus (CMS/HCC) LIPID PANEL WITH REFLEX TO DIRECT LDL Routine 10/19/2024 9:07 AM EST Mixed hyperlipidemia Atrial fibrillation (CMS/HCC) Essential hypertension, malignant Diabetes mellitus (CMS/HCC) DIABETES EYE EXAM Routine 01/04/2024 [facility] DEXA AXIAL SKELETON Routine 03/25/2022 11:34 AM EDT Asymptomatic menopausal state from Last 3 Months or Most Recently Relevant to Health Maintenance Results * (ABNORMAL) Lipid panel with reflex to direct LDL (10/19/2024 9:07 AM EST) Cholesterol 184 0 - 200 mg/dL LAB CHEMISTRY METHOD 10/19/2024 10:45 AM EST [facility] Triglycerides 209(H) 0 - 150 mg/dL LAB CHEMISTRY METHOD 10/19/2024 10:45 AM [facility] HDL 55 >=40 mg/dL LAB CHEMISTRY METHOD 10/19/2024 10:45 AM [facility] LDL Calculated 87 0 - 100 mg/dL LAB CHEMISTRY METHOD 10/19/2024 10:45 AM [facility] VLDL Cholesterol Avni 41.8 mg/dL LAB CHEMISTRY METHOD 10/19/2024 10:45 AM [facility] Non HDL Chol. (LDL+VLDL) 129 <145 mg/dL LAB CHEMISTRY METHOD 10/19/2024 10:45 AM [facility] Chol/HDL Ratio 3.3 0.0 - 4.4 LAB CHEMISTRY METHOD 10/19/2024 10:45 AM [facility] Blood Venous blood specimen / Unknown Venipuncture / Unknown 10/19/2024 9:07 AM EST 10/19/2024 9:07 AM EST us Maliha Pierson MD LAB BLOOD ORDERABLES Final Res ult [facility] [address] [place] [address], * (ABNORMAL) CBC auto differential (10/19/2024 9:07 AM EST) WBC 10.3 4.8 - 10.8 K/mcL LAB HEMETOLOGY METHOD 10/19/2024 10:16 AM [facility] RBC 5.10(H) 3.80 - 4.80 M/mcL LAB HEMETOLOGY METHOD 10/19/2024 10:16 AM [facility] Hemoglobin 14.8 11.5 - 16.0 g/dL LAB HEMETOLOGY METHOD 10/19/2024 10:16 AM [facility] Hematocrit 44.8 35.0 - 47.0 % LAB HEMETOLOGY METHOD 10/19/2024 10:16 AM [facility] MCV 88.5 79.0 - 98.0 FL LAB HEMETOLOGY METHOD 10/19/2024 10:16 AM [facility] MCH 29.2 27.0 - 32.0 pcg LAB HEMETOLOGY METHOD 10/19/2024 10:16 AM [facility] MCHC 33.0 32.0 - 37.0 g/dL LAB HEMETOLOGY METHOD 10/19/2024 10:16 AM [facility] RDW 14.6 11.0 - 15.0 % LAB HEMETOLOGY METHOD 10/19/2024 10:16 AM [facility] Platelets 270 130 - 400 K/mcL LAB HEMETOLOGY METHOD 10/19/2024 10:16 AM [facility] MPV 10.6 7.0 - 11.0 FL LAB HEMETOLOGY METHOD 10/19/2024 10:16 AM [facility] NRBC 0.0 <1.0 % LAB HEMETOLOGY METHOD 10/19/2024 10:16 AM [facility] NRBC Absolute 0.00 <0.10 K/mcL LAB HEMETOLOGY METHOD 10/19/2024 10:16 AM [facility] Neutrophils Relative 66.2 % LAB HEMETOLOGY METHOD 10/19/2024 10:16 AM [facility] Lymphocytes Relative 24.2 % LAB HEMETOLOGY METHOD 10/19/2024 10:16 AM [facility] Monocytes Relative 7.0 % LAB HEMETOLOGY METHOD 10/19/2024 10:16 AM [facility] Eosinophils Relative 1.7 % LAB HEMETOLOGY METHOD 10/19/2024 10:16 AM [facility] Basophils Relative 0.5 % LAB HEMETOLOGY METHOD 10/19/2024 10:16 AM [facility] Immature Granulocytes Relative 0.4 % LAB HEMETOLOGY METHOD 10/19/2024 10:16 AM EST [facility] Neutrophils Absolute 6.83 1.50 - 7.00 K/[facility] LAB HEMETOLOGY METHOD 10/19/2024 10:16 AM [facility] Lymphocytes Absolute 2.49 1.00 - 5.00 K/mcL LAB HEMETOLOGY METHOD 10/19/2024 10:16 AM EST [facility] Monocytes Absolute 0.72 0.20 - 1.00 K/[facility] LAB HEMETOLOGY METHOD 10/19/2024 10:16 AM EST [facility] Eosinophils Absolute 0.18 0.00 - 0.50 K/[facility] LAB HEMETOLOGY METHOD 10/19/2024 10:16 AM EST [facility] Basophils Absolute 0.05 0.00 - 0.20 K/[facility] LAB HEMETOLOGY METHOD 10/19/2024 10:16 AM EST [facility] Immature Granulocytes Absolute 0.04(H) 0.00 - 0.03 K/[facility] LAB HEMETOLOGY METHOD 10/19/2024 10:16 AM [facility] Blood Venous blood specimen / Unknown Venipuncture / Unknown 10/19/2024 9:07 AM EST 10/19/2024 9:07 AM EST us Maliha Pierson MD LAB BLOOD ORDERABLES Final Res ult [facility] [address] [place] [address], * (ABNORMAL) Vitamin D 25 hydroxy (10/19/2024 9:07 AM EST) Vit D, 25-Hydroxy 12.8(L) 30.0 - 80.0 ng/mL LAB CHEMISTRY METHOD 10/19/2024 11:05 AM EST [facility] Blood Venous blood specimen / Unknown Venipuncture / Unknown 10/19/2024 9:07 AM EST 10/19/2024 9:07 AM EST Maliha Pierson MD LAB BLOOD ORDERABLES Final Res ult Performing Organization Address City/[facility]/ZIP Co de Phone Number [facility] [address] [place] [address], [place] [phone] * (ABNORMAL) Magnesium (10/19/2024 9:07 AM EST) Magnesium 1.7(L) 1.9 - 2.6 mg/dL LAB CHEMISTRY METHOD 10/19/2024 10:38 AM EST [facility] Blood Venous blood specimen / Unknown Venipuncture / Unknown 10/19/2024 9:07 AM EST 10/19/2024 9:07 AM EST us Maliha Pierson MD LAB BLOOD ORDERABLES Final Res ult Performing Organization Address [facility]/ZIP Co de Phone Number [facility] [address] [place] [address], [place] [phone] * (ABNORMAL) Hemoglobin A1c (10/19/2024 9:07 AM EST) Hemoglobin A1C 6.8(H) <6.5 % LAB CHEMISTRY METHOD 10/19/2024 1:49 PM EST [facility] Mean Bld Glu Estim. 148 mg/dL LAB CHEMISTRY METHOD 10/19/2024 1:49 PM EST [facility] Blood Venous blood specimen / Unknown Venipuncture / Unknown 10/19/2024 9:07 AM EST 10/19/2024 9:07 AM EST Maliha Pierson MD LAB BLOOD ORDERABLES Final Res ult [facility] [address] [place] [address], [place] [phone] * (ABNORMAL) Comprehensive metabolic panel (10/19/2024 9:07 AM EST) Sodium 139 133 - 145 mmol/L LAB CHEMISTRY METHOD 10/19/2024 10:45 AM [facility] Potassium 3.1(L) 3.5 - 5.5 mmol/L LAB CHEMISTRY METHOD 10/19/2024 10:45 AM [facility] Chloride 104 96 - 110 mmol/L LAB CHEMISTRY METHOD 10/19/2024 10:45 AM [facility] CO2 27 21 - 32 mmol/L LAB CHEMISTRY METHOD 10/19/2024 10:45 AM [facility] Anion Gap 8 3 - 11 LAB CHEMISTRY METHOD 10/19/2024 10:45 AM [facility] Glucose 186(H) 70 - 100 mg/dL LAB CHEMISTRY METHOD 10/19/2024 10:45 AM [facility] BUN 12 5 - 25 mg/dL LAB CHEMISTRY METHOD 10/19/2024 10:45 AM [facility] Creatinine 0.94 0.50 - 1.10 mg/dL LAB CHEMISTRY METHOD 10/19/2024 10:45 AM [facility] eGFR 60 >=60 mL/min/1. 73m2 LAB CHEMISTRY METHOD 10/19/2024 10:45 AM [facility] Comment:Calculation based on the??Chronic Kidney Disease Epidemiology Collaboration (CKD-EPI) equation refit??without adjustment for race. BUN/Creatinine Ratio 12.8 LAB CHEMISTRY METHOD 10/19/2024 10:45 AM [facility] Calcium 9.4 8.5 - 10.5 mg/dL LAB CHEMISTRY METHOD 10/19/2024 10:45 AM [facility] AST (SGOT) 17 10 - 42 unit/L LAB CHEMISTRY METHOD 10/19/2024 10:45 AM [facility] ALT (SGPT) 20 10 - 60 unit/L LAB CHEMISTRY METHOD 10/19/2024 10:45 AM EST [facility] Alkaline Phosphatase 134(H) 42 - 121 unit/L LAB CHEMISTRY METHOD 10/19/2024 10:45 AM [facility] Total Protein 7.3 6.0 - 8.0 g/dL LAB CHEMISTRY METHOD 10/19/2024 10:45 AM EST [facility] Albumin 3.5 3.2 - 5.0 g/dL LAB CHEMISTRY METHOD 10/19/2024 10:45 AM [facility] Total Bilirubin 0.6 0.0 - 1.4 mg/dL LAB CHEMISTRY METHOD 10/19/2024 10:45 AM [facility] Blood Venous blood specimen / Unknown Venipuncture / Unknown 10/19/2024 9:07 AM EST 10/19/2024 9:07 AM EST us Maliha Pierson MD LAB BLOOD ORDERABLES Final Res ult [facility] [address] [place] [address], * Diabetes Eye Exam (01/04/2024) Diabetes: Annual Retina Eye Exam Abstracted Historical Provider HEALTH MAINTENANCE Final Result * [facility] DEXA AXIAL SKELETON (03/25/2022 11:34 AM EDT) Anatomical Region Laterality Modality Mammography 03/25/2022 10:3 3 AM EDT Narrative 03/25/2022 11:34 AM EDT [facility] Diagnostic Imaging Department [address] [place] [address] Patient: ??CELESTINA RAPHAEL ?/Age/Sex: 1940 - 81 - F Unit#: ??[id number] ? Location/Status: ??SPDIMAM/REG CLI ? Mnemonic/Ordering Site: ??MAMDEXAAX/SPMAM Ordering Physician: ??MALIHA PIERSON MD Dominic Dexa Axial Skeleton - 03/25/22 - 1119 HISTORY: ??The patient is an 81-year-old postmenopausal female with clinical concern for metabolic bone disease. ??The patient has undergone previous bilateral total hip replacement surgery. FINDINGS: ??Dual energy x-ray absorptiometry of the lumbar spine is performed. The mean bone mineral density at L1-L4 is 1.249 gm/cm2 which is 106% of that of young normals and 123% of that of age matched controls. This yields a T-score of 0.6 and a Z-score of 2.0 and there is therefore no evidence of osteoporosis or osteopenia here. IMPRESSION: There is no evidence of osteoporosis or osteopenia in the lumbar spine. Code 88766 Dictating Physician: ??SERENA HARGROVE MD Electronically Signed by: ??SERENA HARGROVE MD Dic Date/Time: ??03/25/22 1132 Sign date/Time: ??03/25/22 1134 Procedure Note Serena Hargrove MD - 09/08/2022 [facility] Diagnostic Imaging Department [address] [place], [place] [id number] Patient: CELESTINA RAPHAEL /Age/Sex: 1940 - 81 - F Unit#: [id number] Location/Status: SPDIMAM/REG CLI Mnemonic[facility] Ordering Physician: MALIHA PIERSON MD Dominic Dexa Axial Skeleton - 03/25/22 - 1119 HISTORY: The patient is an 81-year-old postmenopausal female withclinical concern for metabolic bone disease. The patient has undergone previous bilateral total hip replacement surgery. FINDINGS: Dual energy x-ray absorptiometry of the lumbar spine isperformed. The mean bone mineral density at L1-L4 is 1.249 gm/cm2 which is 106% ofthat of young normals and 123% of that of age matched controls. This yields aT-score of 0.6 and a Z-score of 2.0 and there is therefore no evidence ofosteoporosis or osteopenia here. IMPRESSION: There is no evidence of osteoporosis or osteopenia in thelumbar spine. Code 29678 Dictating Physician: SERENA HARGROVE MD Electronically Signed by: SERENA HARGROVE MD Dic Date/Time: 03/25/22 1132 Sign date/Time: 03/25/22 1134 Maliha Pierson MD IMG BI PROCEDURES Final Result from Last 3 Months or Most Recently Relevant to Health Maintenance Insurance [employer] ZU[place]IGA [place] [id number] [employer] MEDICARE Care Teams Floorperson Relationship Specialty Start Date End Date Maliha Pierson MD [address] [place] [phone] PCP - General Internal Medicine 01/21/21
--- OUTSIDE RECORDS SUMMARY | 2024-11-28 10:32 | XMS_ITS | Clinical Summary ---
Author Organization [facility] Address [address] [place] [address] Care Team Providers Care Director Of Clinical Services Name Role Phone Arnold Rodgers MD Primary Care Provider + [phone] Allergies Active Allergy Reactions Criticality Noted Date Comments Oxycodone Other (See Comments) High 04/13/2017 Oxycodone-Acetaminophen 06/15/2017 Sulfa Antibiotics 06/15/2017 Medications Medication Sig Dispensed Refills Start Date End Date Status amLODIPine (NORVASC) tablet 5 mg TAKE 1 TABLET BY MOUTH EVERY DAY 3 03/19/2017 Active ciprofloxacin (CIPRO) 500 MG tablet TAKE 1 TABLET BY MOUTH TWICE A DAY 0 03/01/2017 Active digoxin (LANOXIN) 125 MCG tablet TAKE 1 TABLET BY MOUTH EVERY DAY 3 02/08/2017 Active erythromycin (ROMYCIN) ophthalmic ointment APPLY 1/2 INCH RIBBON TO AFFECTED EYE 3 TIMES A DAY X 7 DAYS. 0 05/05/2017 Active ONE TOUCH ULTRA TEST test strip USE TO TEST BLOOD SUGAR TWICE A DAY 3 05/05/2017 Active ONETOUCH DELICA LANCETS 33G MISC USE TO TEST BLOOD SUGAR TWICE A DAY 3 05/06/2017 Active metFORMIN (GLUCOPHAGE) tablet 500 mg TAKE 1 TABLET BY MOUTH TWICE A DAY 3 03/28/2017 Active metoprolol succinate (TOPROL-XL) 24 hr tablet 100 mg TAKE 1 TABLET BY MOUTH EVERY DAY 3 03/19/2017 Active predniSONE (DELTASONE) tablet 10 mg TAKE 4 TABLETS DAILY FOR 2 DAYS,2 TABLETS DAILY FOR 2 DAYS, 1 TABLET DAILY FOR 2 DAYS, THEN STOP. 0 05/05/2017 Active simvastatin (ZOCOR) tablet 20 mg TAKE 1 TABLET AT BEDTIME. 5 05/02/2017 Active valsartan (DIOVAN) tablet 320 mg TAKE 1 TABLET BY MOUTH EVERY DAY 3 02/28/2017 Active D3-50 15179 UNITS capsule TAKE ONE CAPSULE BY MOUTH ONCE A WEEK DIRECTED 0 05/17/2017 Active FLUZONE HIGH-DOSE 0.5 ML EBER TO BE ADMINISTERED BY PHARMACIST FOR IMMUNIZATION 0 05/30/2017 Active spironolactone-hyd rochlorothiazide (ALDACTAZIDE) 25-25 MG per tablet TAKE 1 TABLET BY MOUTH EVERY DAY 3 05/26/2017 Active Dulaglutide (TRULICITY SC) Inject under the skin. 0 Active albuterol (ProAir HFA) 108 (90 Base) MCG/ACT inhaler ProAir HFA 90 mcg/actuation aerosol inhaler 0 12/16/2016 Active allopurinol (ZYLOPRIM) 100 MG tablet allopurinol 100 mg tablet TAKE 2 TABLETS BY MOUTH EVERY DAY 0 01/20/2021 Active empagliflozin (Jardiance) 10 MG tablet Jardiance 10 mg tablet 0 Active fluconazole (DIFLUCAN) 150 MG tablet TAKE 1 TABLET BY MOUTH ONCE 0 05/14/2021 Active glipiZIDE (GLUCOTROL) tablet 5 mg glipizide 5 mg tablet 0 Active apixaban (Eliquis) 5 MG TABS tablet Eliquis 5 mg tablet TAKE 1 TABLET BY MOUTH TWICE DAILY 0 04/19/2021 Active ipratropium-albute rol (DUO-NEB) 0.5-2.5 mg/mL nebulizer ipratropium 0.5 mg-albuterol 3 mg (2.5 mg base)/3 mL nebulization soln 0 04/17/2018 Active losartan (COZAAR) 100 MG tablet losartan 100 mg tablet 0 Active montelukast (SINGULAIR) 10 MG tablet montelukast 10 mg tablet TAKE 1 TABLET BY MOUTH EVERY DAY 0 Active SITagliptin (Januvia) 100 MG tablet Januvia 100 mg tablet 0 Active amoxicillin (AMOXIL) 500 MG tablet Take 4 tabs 1 hour prior to dental appointment 20 tablet 3 07/08/2021 Active Active Problems Problem Noted Date Diagnosed Date Effusion of right knee joint 05/06/2021 Arthritis of knee, right 05/06/2021 Trochanteric bursitis of right hip 06/16/2017 Family History Medical History Relation Name Comments Cancer Brother Heart disease Father Hypertension Mother Relation Name Status Comments Brother Father Mother Social History Tobacco Use Types Packs/Day Years Used Date Smoking Tobacco: Former Alcohol Use Standard Drinks/Week Comments Yes 0 (1 standard drink = 0.6 oz pur e alcohol) social Sex and Gender Information Value Date Recorded Sex Assigned at Not on file Gender Identity Not on file Sexual Orientation Not on file Job Start Date Occupation Industry Not on file Not on file Not on file Last Filed Vital Signs Vital Sign Reading Time Taken Comments Blood Pressure - - Pulse - - Temperature - - Respiratory Rate - - Oxygen Saturation - - Inhaled Oxygen Concentration - - Weight 77.1 kg (170 lb) 05/06/2021 1:26 PM EDT Height 167.6 cm (5' 6 ) 05/06/2021 1:26 PM EDT Body Mass Index 27.44 05/06/2021 1:26 PM EDT Plan of Treatment Health Maintenance Due Date Last Done Comments COVID-19 Vaccine (#1) 1940 Depression Screening 1952 Preventative Health Evaluation 1958 DTap / Tdap / Td (1 - Tdap) 1959 Shingrix-Zoster Vaccine (1 o f 2) 1990 Fall Risk Assessment 2005 Osteoporosis Screening (DEXA Scan) 2005 Pneumococcal Vaccine (1 of 1 - PCV) 2005 RSV Adult > 60+ Yrs or (1 - 1-dose 75+ series) 2015 Influenza Vaccine (#1) 2024 7, 05/24/2016 Hepatitis B Vaccines Aged Out No long er eligible based on patient's age to complete this topic RSV Ped < 20 months Aged Out No longe r eligible based on patient's age to complete this topic Care Teams Director Of Clinical Services Relationship Specialty Start Date End Date Arnold Rodgers MD [address] [facility] [place] [address] PCP - General Internal Medicine 05/11/17
== END 2024-11-28 10:12 | disposition home or self-care (01) ==
LOC: HO.HOS 09:38
PROVIDERS: Visit Provider Orthopaedic Surgery
DX: M25.811 Other specified joint disorders, right shoulder (principal)
CPT/HCPCS: 20610; 99213

== ENCOUNTER → 2024-11-28 09:39 | Outpatient (BNV) | payer MEDICARE, SELFPAY | PROVIDERS: Visit Provider Radiology Diagnostic Radiology | DX: M25.511 Pain in right shoulder (principal) | CPT/HCPCS: 73030 ==

== ENCOUNTER 2025-02-26 13:46 | Outpatient (REF) | payer MEDICARE, SELFPAY | END 2025-02-26 13:47 | disposition home or self-care (01) | LOC: HO.HOSX 13:46 | PROVIDERS: Visit Provider Orthopaedic Surgery | DX: Z13.89 Encounter for screening for other disorder (principal) ==

== ENCOUNTER 2025-02-27 10:02 | Outpatient (AMB) | payer MEDICARE, SELFPAY ==
--- NOTE | 2025-02-27 10:04 | A.OFFVIS_ITS ---
Vital Signs 02/27/25 10:05 Height 5 ft 6 in Weight 169 lb 12.095 oz BMI 27.4 BP 140/80 H Blood Pressure Location Lt brachial Position Sitting Pulse 53 Intake Visit Reasons: 1 yr f/up Intake Note: 1 year follow-up with ekg feeling good Steam Shovel Operator Required: No Allergies Sulfa (Sulfonamide Antibiotics) [SULFA (SULFONAMIDE ANTIBIOTICS)] Allergy (Mild, Verified 11/28/24 09:55) HIVES Iodinated Contrast Media [CONTRAST, IV] Allergy (Unknown, Verified 11/28/24 09:55) anaphylaxis oxycodone [OXYCODONE] Adverse Reaction (Unknown, Verified 11/28/24 09:55) hallucinations Medication List - Last Reconciled 02/27/25 by Wallace Ansari MD albuterol sulfate 90 mcg/actuation inhalation allopurinol 100 mg PO BID amlodipine 7.5 mg PO DAILY apixaban 5 mg PO BID 90 days atorvastatin 20 mg PO BEDTIME digoxin 125 mcg PO DAILY dulaglutide 1.5 mg subcut QWEEK fluticasone furoate-vilanterol 200-25 mcg/dose (Breo Ellipta) 1 ea inhalation DAILY losartan 100 mg PO DAILY 30 days metformin 1,000 mg PO BID metoprolol succinate ER 100 mg PO DAILY montelukast 10 mg PO BEDTIME HPI Comments Details: Callie returns for follow-up regarding atrial fibrillation. Overall, she states that she is getting along fine. No clear-cut symptoms like chest pains, shortness of breath or palpitations or in fact anything cardiac sounding. [facility] Medical History Chronic obstructive pulmonary disease, unspecified Type 2 diabetes mellitus with unspecified complications Essential hypertension Other and unspecified hyperlipidemia Permanent atrial fibrillation Surgical History History of total hip arthroplasty History of arthroplasty of knee Family History Father Myocardial infarction Mother Hypertension Social History Alcohol intake: current Alcohol intake frequency: holidays/special occasions only Review of Systems Const Denies chills, Denies fatigue, Denies fever(s), Denies frequent falls, Denies weakness, Denies weight gain and Denies weight loss ENT Denies dizziness Card Denies chest pain, Denies leg edema, Denies lightheadedness, Denies palpitations, Denies dyspnea, Denies dyspnea on exertion, Denies orthopnea and Denies other (loss of consciousness) Resp Denies cough, Denies dyspnea and Denies dyspnea on exertion GI Denies hematochezia and Denies change in stool character Musc Denies abnormal gait, Denies muscle weakness, Denies numbness, Denies radiating pain into limb and Denies tingling Neuro Denies abnormal gait, Denies dizziness, Denies frequent falls, Denies numbness, Denies tingling and Denies weakness Endo Denies fatigue and Denies palpitations Physical Exam Vital Signs: Last Vital Signs Pulse 53 02/27/25 10:05 BP 140/80 H 02/27/25 10:05 BMI result Body Mass Index 27.4 Const General: comfortable and no acute distress Orientation/consciousness: patient oriented x3 HEENT Other: Unremarkable Head: Yes normal to inspection Neck Neck: Yes normal visual inspection Chest Chest palpation & inspection: normal inspection of the chest Resp Auscultation: clear to auscultation bilaterally Cardio Palpation: normal PMI Heart sounds: S1 normal heart sound present, S2 normal heart sound present, no gallops, no murmurs and no rubs GI Palpation (GI): Soft to palpation Back/Spine/Pelvis Other: unremarkable Skin General skin exam: no rashes or lesions noted Neuro General: patient oriented x3 Extrem General: Yes normal to inspection Psych Mental Status: mental status grossly normal Office Procedures EKG Details: EKG with atrial fibrillation with slow ventricular response at 53/Min. Cannot exclude old anteroseptal infarct but could be normal variant. [id number], Complete Assessment & Plan Assessment & Plan (1) Permanent atrial fibrillation: Code(s): I48.21 - Permanent atrial fibrillation Category: Medical Plan: Continue beta-blockers and digoxin. Continue Eliquis. Last echocardiogram with LVEF of 65%. Severely dilated left atrium. Patient states she gets her labs through her own PCP. Advised to do digoxin levels. (2) Essential hypertension: Code(s): I10 - Essential (primary) hypertension Category: Medical Plan: Not clear what the amlodipine doses. Last time, she advised to go to amlodipine 10 mg daily. She can follow this with her own PCP. Borderline high blood pressure. (3) Type 2 diabetes mellitus with unspecified complications: Code(s): E11.8 - Type 2 diabetes mellitus with unspecified complications Category: Medical Plan: On dulaglutide, metformin. Hemoglobin A1c is 7.3%. (4) Chronic obstructive pulmonary disease, unspecified: Code(s): J44.9 - Chronic obstructive pulmonary disease, unspecified Category: Medical Plan: Stable. Plan Follow-up in 1 year. In the interim, she will call with concerns. Discussion Notes During the visit, we discussed the stability of the patient's atrial fibrillation and the importance of maintaining her current anticoagulant therapy with Eliquis. I reiterated the necessity of monitoring Digoxin medication levels to avert potential complications. I advised that her hypertension management should persist under her current care plan and her primary physician's guidance. The patient expressed understanding of her management plan and agreed to continue prescribed measures for her conditions. Patient was informed and verbally consented to the use of an ambient scribe for clinic note documentation during this visit. Orders: Orders Digoxin Today I48.19 - Other persistent atrial fibrillation Patient Instructions: - Continue taking Eliquis as prescribed for atrial fibrillation. - Monitor blood pressure regularly and speak with your primary care doctor about medication adjustments if needed. - check Digoxin level. - Return for routine follow-ups unless new symptoms occur. - Seek medical care if any new or worsening symptoms develop. Coding Level of Care Code Est Pt Level 4 (40083) Complex EM visit Add On G2211 Diagnoses Permanent atrial fibrillation I48.21 Essential hypertension I10 Type 2 diabetes mellitus with unspecified complications E11.8 Chronic obstructive pulmonary disease, unspecified J44.9 CPT Codes EKG - CPT: 29512-[id number], Complete ([id number])
[2025-02-27 10:05] VITALS: BP 140/80; PULSE 53; BMI 27.4
--- OUTSIDE RECORDS SUMMARY | 2025-02-27 11:17 | XMS_ITS | Clinical Summary ---
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 01/20/20 24 Active dulaglutide (Trulicity) 0.75 mg/0.5 mL pen injector injection Inject 0.75 mg as directed once a week. 01/18/20 24 Active magnesium chloride (Slow-Mag) 71.5 mg tablet,delayed release [...] Tablet may be swallowed whole (do not crush/chew/garcia ck on) OR broken in half and each half swallowed separately OR dissolved (whole tablet) in ~4 ounces of water (allow ~2 minutes to dissolve, stir well and administer immediately). 90 each 2 10/19/19 25 Active allopurinoL (ZYLOPRIM) 100 mg tablet TAKE 1 TABLET BY MOUTH TWICE DAILY 180 tablet 1 11/01/19 25 Active fluticasone furoate-vilanter oL (BREO ELLIPTA) 200-25 mcg/dose inhaler Inhale 1 puff by mouth 1 (one) time each day. Inhale 1 Puff into the lungs daily. - Inhalation 1 each 3 11/08/19 25 Active amLODIPine (NORVASC) 10 mg tablet Take 1 tablet (10 mg total) by mouth 1 (one) time each day. Take 1 Tablet by mouth daily. 90 tablet 1 11/23/19 25 Active metFORMIN (GLUCOPHAGE) 1,000 mg tablet Take 1 tablet (1,000 mg total) by mouth 2 (two) times a day with meals. TAKE 1 TABLET BY MOUTH TWICE DAILY WITH MEALS 180 tablet 3 12/06/19 25 Active cholecalciferol (VITAMIN D-3) 1,250 mcg (50,000 unit) capsule Take 1 capsule (50,000 Units total) by mouth 1 (one) time each day. 05/17/20 17 Active losartan (COZAAR) 100 mg tablet TAKE 1 TABLET BY MOUTH DAILY 90 tablet 1 02/01/20 25 Active betamethasone dipropionate (DIPROSONE) 0.05 % cream Apply thin layer to affected area BID for 4 weeks then stop. Avoid face and groin. 30 g 1 05/22/20 25 Active loratadine (CLARITIN) 10 mg tablet Take 1 tablet (10 mg total) by mouth 1 (one) time each day if needed for allergies (itchiness). 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 Obstructive sleep apnea syndrome 07/12/2017 Diabetes mellitus type 2, un complicated ([facility] V24, [facility] V28) 07/08/2017 Atrial fibrillation ([facility] V24, [facility] V28) 1 Hyperlipidemia 07/04/2017 Hypertension 07/04/2017 Memory loss 07/04/2017 Recurrent urinary tract infection 07/04/2017 Vitamin D deficiency 07/04/2017 Trochanteric bursitis of right hip 06/16/2017 Resolved Problems Problem Noted Date Diagnosed Date Resolved Date History of hip replacement 01/03/2018 1 10/21/2023 Encounters Date Type Department Care Team Description 02/07/2025 4:00 PM EDT Office Visit Internal Medicine [address] [phone] Kathryn Rodgers MD Dermatitis (Primary Dx) 02/07/2025 Telephone Internal Medicine [address] [place] [phone] Sandie Coombs MA Rash 01/24/2025 7:54 AM EDT - 01/24/2025 11:59 PM EDT Hospital Encounter Radiology Department - [address] [phone] Thyroid nodule Discharge Disposition: Home or Self Care 01/09/2025 4:00 PM EDT Consult Endocrinology - [address] [phone] Marcela Gambino PA Thyroid nodule (Primary Dx) 12/28/2024 Telephone Internal Medicine - [place] [address] [phone] Sandie Coombs MA 12/10/2024 Telephone Internal Medicine [facility] [address] [phone] Di Pierson MD 11/28/2024 11:22 AM EDT - 11/28/2024 11:59 PM EDT Hospital Encounter [facility] [address] [place] [phone] Thyroid nodule Discharge Disposition: Home or Self Care from Last 3 Months Immunizations Name Administration [...] hip replacement Asthma 07/12/2017 DX:Asthma Atrial fibrillation (CMS/HCC V24, CMS/HCC V28) 07/04/2017 DX:Atrial fibrillation (HCC) Diabetes mellitus type 2, uncomplicated (CMS/HCC V24, CMS/HCC V28) 07/08/2017 DX:Diabetes mellitus type 2, uncomplicated (HCC) Hyperlipidemia 07/04/2017 DX:Hyperlipidemi a Hypertension 07/04/2017 DX:Hypertension Memory loss 07/04/2017 DX:Memory loss Obstructive sleep apnea syndrome 07/12/2017 DX:Obstructive sleep apnea syndrome Recurrent urinary tract infection 07/04/2017 DX:Recurrent urinary tract infection Vitamin D deficiency 07/04/2017 DX:Vitamin D deficiency Anxiety 03/31/2018 DX:Anxiety Chronic obstructive pulmonar y disease (CMS/HCC V24, CMS/HCC V28) 07/12/2017 DX:Chronic obstructive pulm onary disease (HCC); COMMENT: CT Chest from 10/06/2020 [...] = 0.6 oz pur e alcohol) Comments No Sex and Gender Information Value Date Recorded Sex Assigned at Female 11/14/2024 10:34 AM EST Legal Sex Female 8:09 PM EST Gender Identity Female 11/14/2024 10:34 AM EST Sexual Orientation Straight 11/14/2024 10 :34 AM EST Obstetrics History Last Filed Vital Signs Vital Sign Reading Time Taken Comments Blood Pressure 138/86 02/07/2025 4:08 PM EDT Pulse 84 02/07/2025 4:08 PM EDT Temperature 36.4 ??C (97.5 ??F) 02/07/2025 4:08 PM ED T Respiratory Rate - - Oxygen Saturation 98% 02/07/2025 4:08 PM EDT Inhaled Oxygen Concentration - - Weight 75.8 kg (167 lb 3.2 oz) 02/07/2025 4:08 P M EDT Height 167.6 cm (5' 6 ) 01/09/2025 4:06 PM EDT Body Mass Index 26.99 01/09/2025 4:06 PM EDT Plan of Treatment Upcoming Encounters Date Type Department Care Team (Late st Contact Info) Description 03/21/2025 2:30 PM EDT Evaluation [address] [phone] Tammie Campos, PT 04/22/2025 1:00 PM EDT Office Visit Internal Medicine - [place] 175 [facility] [address] [place] [phone] Di Pierson MD 175 [facility] [address] [place] [address] Health Maintenance Due Date Last Done Comments Diabetes: Annual Foot Exam 1950 DTaP,Tdap,and Td Vaccines (1 - Tdap) 1959 Pneumococcal Vaccine: 50+ Years (1 of 2 - PCV) 1959 Zoster Vaccines (1 of 2) 1990 RSV Immunization Adult Patients (1 - 1-dose 75+ series) 2015 Depression Screening 08/26/2022 Falls Risk Assessment 08/26/2022 Medicare Annual Wellness Visit 08/26/2022 Social Influencers of Health Screening 08/26/2022 Diabetes: Annual Urine Albumin-Creatinine Ratio (uACR) 09/03/2022 COVID-19 Vaccine (2023-2 5 season) 2024 Diabetes: Annual Retina Eye [...] age to complete this topic Meningococcal B Vaccine Aged Out No l onger eligible based on patient's age to complete this topic RSV Immunization Patients Under 20 months Aged Out No longer eligible b ased on patient's age to complete this topic Varicella Vaccines Aged Out No longer eligible based on patient's age to complete this topic Procedures Procedure Name Priority Date/Time Associated Diagnosis Comments FINE NEEDLE ASPIRATION Routine 01/24/2025 9:00 AM EDT Thyroid nodule US GUIDED FINE NDL ASP EACH ADDL LESION Routine 01/24/2025 8:58 AM EDT Thyroid nodule US GUIDED FINE NDL ASP 1ST LESION Routine 01/24/2025 8:58 AM EDT Thyroid nodule THYROID STIMULATING HORMONE WITH REFLEX TO FREE T4 AND FREE T3 Routine 01/09/2025 4:47 PM EDT Thyroid nodule US HEAD NECK SOFT TISSUE Routine 11/28/2024 11:45 AM EDT Thyroid nodule COMPREHENSIVE METABOLIC PANEL Routine 10/19/2024 9:07 AM EST Mixed hyperlipidemia Atrial fibrillation (CMS/HCC V24, CMS/HCC V28) Essential hypertension, malignant Diabetes mellitus (CMS/HCC V24, CMS/HCC V28) HEMOGLOBIN A1C Routine 10/19/2024 9:07 AM EST Mixed hyperlipidemia Atrial fibrillation (CMS/HCC V24, CMS/HCC V28) Essential hypertension, malignant Diabetes mellitus (CMS/HCC V24, CMS/HCC V28) LIPID PANEL WITH REFLEX TO DIRECT LDL Routine 10/19/2024 9:07 AM EST Mixed hyperlipidemia Atrial fibrillation (CMS/HCC V24, CMS/HCC V28) Essential hypertension, malignant Diabetes mellitus (CMS/HCC V24, CMS/HCC V28) DIABETES EYE EXAM Routine 01/04/2024 [facility] DEXA AXIAL SKELETON Routine 03/25/2022 11:34 AM EDT Asymptomatic menopausal state from Last 3 Months or Most Recently Relevant to Health Maintenance Results * Fine needle aspiration (01/24/2025 9:00 AM EDT) Final Diagnosis A. Thyroid, Left Upper, fine needle aspiration, (ThinPrep, direct smears): Benign ([place] Category II) Consistent with follicular nodular disease (includes adenomatoid nodule, colloid nodule, etc.) B. Thyroid, Left Lower, fine needle aspiration, (ThinPrep, direct smears): Benign ([place] Category II) Consistent with follicular nodular disease (includes adenomatoid nodule, colloid nodule, etc.) 01/29/2025 10:57 AM EDT [facility] Clinical Information up lt thyroid hypoechoic nodule 01/29/2025 10:57 AM [facility] Specimen A Adequacy Satisfactory for evaluation 01/29/2025 10:57 AM [facility] Specimen B Adequacy Satisfactory for evaluation 01/29/2025 10:57 AM [facility] Gross Description A. Thyroid, Left, up lt thyroid hypoechoic nodule: Received in Cytolyt 30 ml of clear fluid, 3 air dried direct smears, 3 alcohol fixed smears B. Thyroid, Left, Left lower pole thyroid, enlarging nodule: Received in Cytolyt 30 ml of clear fluid, 3 air dried direct smears, 3 alcohol fixed smears 01/29/2025 10:57 AM T [facility] Disclaimer Unless otherwise specified, all tissue is 10% NB formalin fixed and paraffin embedded. Technical cytopathology services provided by [facility], at [address] [place] [address] (CLIA # [id number]/Eufemia De Dios MD, [employer].) 01/29/2025 10:57 AM EDT [facility] Fine Needle Aspirate Structure of left lobe of thyroid gland / Unknown 01/24/2025 9:00 AM EDT 01/28/2025 9:32 AM EDT Comment:up lt thyroid hypoec hoic nodule Specimen obtained by fine needle aspiration procedure (specimen) Structure of left lobe of thyroid gland / Unknown 01/24/2025 9:00 AM EDT 01/28/2025 9:34 AM EDT us Kaitlyn Coello MD LAB PATHOLOGY ORDERABLES Final R esult [facility] [address] [place] [address], [place] [phone] * US Guided Fine Ndl Asp Each Addl Lesion (01/24/2025 8:58 AM EDT) Anatomical Region Laterality Modality Ultrasound 01/24/2025 9:14 AM EDT Addenda Addendum by Kaitlyn Coello MD on 01/31/2025 10:08 AM EDT Addendum: A. Thyroid, Left Upper, fine needle aspiration, (ThinPrep, direct smears): Benign ([place] Category II) Consistent with follicular nodular disease (includes adenomatoid nodule, colloid nodule, etc.) ?? ? B. Thyroid, Left Lower, fine needle aspiration, (ThinPrep, direct smears): Benign ([place] Category II) Consistent with follicular nodular disease (includes adenomatoid nodule, colloid nodule, etc.) ?? -------- ADDENDUM -------- Dictated By: Kaitlyn Coello Dictated Date: 01/31/2025 10:08 ET Assigned Physician: Kaitlyn Coello Reviewed and Electronically Signed By: Kaitlyn Coello Signed Date: 01/31/2025 10:08 ET Workstation ID: [id number] Transcribed By: Self Edit Transcribed Date: 01/31/2025 10:08 ET Impressions 01/24/2025 9:17 AM EDT Seemingly successful ultrasound-guided fine-needle aspiration of 2 left thyroid nodules. ??Pathologic analysis is pending. POS - [id number] -------- FINAL REPORT -------- Dictated By: Kaitlyn Coello Dictated Date: 01/24/2025 09:14 ET Assigned Physician: Kaitlyn Coello Reviewed and Electronically Signed By: Kaitlyn Coello Signed Date: 01/24/2025 09:17 ET Workstation ID: [id number] Transcribed By: Self Edit Transcribed Date: 01/24/2025 09:14 ET Narrative 01/24/2025 9:17 AM EDT EXAM: Ultrasound-guided fine-needle aspiration of 2 left thyroid nodules. FINDINGS: Patient presents for ultrasound-guided fine-needle aspiration of 2 left thyroid nodules. ??Prior imaging from 11/28/2024 was reviewed. ??Risks and benefits of the procedure including specific risks of hemorrhage and infection were discussed with the patient before beginning the procedure. ??Written and verbal consent to proceed were given. ?? 1.7 x 1.6 x 1.1 cm left upper lobe nodule: The overlying skin was prepped with betadine and anesthetized with 1% buffered lidocaine. Using ultrasound guidance, 3 passes were made into the nodule using 25-gauge spinal needles. ??ThinPrep slides were prepared. ??No immediate complications. ??No postprocedural hematoma. 4.0 x 4.0 x 3.2 cm left lower lobe nodule: The overlying skin was prepped with betadine and anesthetized with 1% buffered lidocaine. Using ultrasound guidance, 3 passes were made into the nodule using 25-gauge spinal needles. ??ThinPrep slides were prepared. ??No immediate complications. ??No postprocedural hematoma. Procedure Note Kaitlyn Coello MD - 01/24/2025 EXAM: Ultrasound-guided fine-needle aspiration of 2 left thyroidnodules. FINDINGS: Patient presents for ultrasound-guided fine-needle aspiration of 2 leftthyroid nodules. Prior imaging from 11/28/2024 was reviewed. Risks andbenefits of the procedure including specific risks of hemorrhage andinfection were discussed with the patient before beginning the procedure.Written and verbal consent to proceed were given. 1.7 x 1.6 x 1.1 cm left upper lobe nodule: The overlying skin was preppedwith betadine and anesthetized with 1% buffered lidocaine. Usingultrasound guidance, 3 passes were made into the nodule using 25-gaugespinal needles. ThinPrep slides were prepared. No immediatecomplications. No postprocedural hematoma. 4.0 x 4.0 x 3.2 cm left lower lobe nodule: The overlying skin was preppedwith betadine and anesthetized with 1% buffered lidocaine. Usingultrasound guidance, 3 passes were made into the nodule using 25-gaugespinal needles. ThinPrep slides were prepared. No immediatecomplications. No postprocedural hematoma. IMPRESSION: Seemingly successful ultrasound-guided fine-needle aspiration of 2 leftthyroid nodules. Pathologic analysis is pending. POS - [id number] -------- FINAL REPORT -------- Dictated By: Kaitlyn Coello Dictated Date: 01/24/2025 09:14 ET Assigned Physician: Kaitlyn Coello Reviewed and Electronically Signed By: Kaitlyn Coello Signed Date: 01/24/2025 09:17 ET Workstation ID: [id number] Transcribed By: Self Edit Transcribed Date: 01/24/2025 09:14 ET us Marcela ANTONIO IMG US PROCEDURES Edited Re sult - Final * US Guided Fine Ndl Asp 1st Lesion (01/24/2025 8:58 AM EDT) Anatomical Region Laterality Modality Ultrasound 01/24/2025 9:14 AM EDT Addenda Addendum by Kaitlyn Coello MD on 01/31/2025 10:08 AM EDT Addendum: A. Thyroid, Left Upper, fine needle aspiration, (ThinPrep, direct smears): Benign ([place] Category II) Consistent with follicular nodular disease (includes adenomatoid nodule, colloid nodule, etc.) ?? ? B. Thyroid, Left Lower, fine needle aspiration, (ThinPrep, direct smears): Benign ([place] Category II) Consistent with follicular nodular disease (includes adenomatoid nodule, colloid nodule, etc.) ?? -------- ADDENDUM -------- Dictated By: Kaitlyn Coello Dictated Date: 01/31/2025 10:08 ET Assigned Physician: Kaitlyn Coello Reviewed and Electronically Signed By: Kaitlyn Coello Signed Date: 01/31/2025 10:08 ET Workstation ID: [id number] Transcribed By: Self Edit Transcribed Date: 01/31/2025 10:08 ET Impressions 01/24/2025 9:17 AM EDT Seemingly successful ultrasound-guided fine-needle aspiration of 2 left thyroid nodules. ??Pathologic analysis is pending. POS - [id number] -------- FINAL REPORT -------- Dictated By: Kaitlyn Coello Dictated Date: 01/24/2025 09:14 ET Assigned Physician: Kaitlyn Coello Reviewed and Electronically Signed By: Kaitlyn Coello Signed Date: 01/24/2025 09:17 ET Workstation ID: [id number] Transcribed By: Self Edit Transcribed Date: 01/24/2025 09:14 ET Narrative 01/24/2025 9:17 AM EDT EXAM: Ultrasound-guided fine-needle aspiration of 2 left thyroid nodules. FINDINGS: Patient presents for ultrasound-guided fine-needle aspiration of 2 left thyroid nodules. ??Prior imaging from 11/28/2024 was reviewed. ??Risks and benefits of the procedure including specific risks of hemorrhage and infection were discussed with the patient before beginning the procedure. ??Written and verbal consent to proceed were given. ?? 1.7 x 1.6 x 1.1 cm left upper lobe nodule: The overlying skin was prepped with betadine and anesthetized with 1% buffered lidocaine. Using ultrasound guidance, 3 passes were made into the nodule using 25-gauge spinal needles. ??ThinPrep slides were prepared. ??No immediate complications. ??No postprocedural hematoma. 4.0 x 4.0 x 3.2 cm left lower lobe nodule: The overlying skin was prepped with betadine and anesthetized with 1% buffered lidocaine. Using ultrasound guidance, 3 passes were made into the nodule using 25-gauge spinal needles. ??ThinPrep slides were prepared. ??No immediate complications. ??No postprocedural hematoma. Procedure Note Kaitlyn Coello MD - 01/24/2025 EXAM: Ultrasound-guided fine-needle aspiration of 2 left thyroidnodules. FINDINGS: Patient presents for ultrasound-guided fine-needle aspiration of 2 leftthyroid nodules. Prior imaging from 11/28/2024 was reviewed. Risks andbenefits of the procedure including specific risks of hemorrhage andinfection were discussed with the patient before beginning the procedure.Written and verbal consent to proceed were given. 1.7 x 1.6 x 1.1 cm left upper lobe nodule: The overlying skin was preppedwith betadine and anesthetized with 1% buffered lidocaine. Usingultrasound guidance, 3 passes were made into the nodule using 25-gaugespinal needles. ThinPrep slides were prepared. No immediatecomplications. No postprocedural hematoma. 4.0 x 4.0 x 3.2 cm left lower lobe nodule: The overlying skin was preppedwith betadine and anesthetized with 1% buffered lidocaine. Usingultrasound guidance, 3 passes were made into the nodule using 25-gaugespinal needles. ThinPrep slides were prepared. No immediatecomplications. No postprocedural hematoma. IMPRESSION: Seemingly successful ultrasound-guided fine-needle aspiration of 2 leftthyroid nodules. Pathologic analysis is pending. POS - [id number] -------- FINAL REPORT -------- Dictated By: Kaitlyn Coello Dictated Date: 01/24/2025 09:14 ET Assigned Physician: Kaitlyn Coello Reviewed and Electronically Signed By: Kaitlyn Coello Signed Date: 01/24/2025 09:17 ET Workstation ID: [id number] Transcribed By: Self Edit Transcribed Date: 01/24/2025 09:14 ET us Marcela ANTONIO G US PROCEDURES Edited Re sult - Final * Thyroid stimulating hormone with reflex to free t4 and free t3 (01/09/2025 4:47 PM EDT) TSH 2.61 0.40 - 4.00 mcIU/mL LAB CHEMISTRY METHOD 01/09/2025 7:14 PM EDT [facility] Blood Venous blood specimen / Unknown Venipuncture / Unknown 01/09/2025 4:47 PM EDT 01/09/2025 4:47 PM EDT us Marcela ANTONIO LAB BLOOD ORDERABLES Final Result [facility] [address] [place] [address], [place] [phone] * US Head Neck Soft Tissue (11/28/2024 [...] Signed Date: 11/28/2024 14:41 ET Workstation ID: [id number] Transcribed By: Self Edit Transcribed Date: 11/28/2024 [...] Signed Date: 11/28/2024 14:41 ET Workstation ID: [id number] Transcribed By: Self Edit Transcribed Date: 11/28/2024 14:28 ET us Di Pierson MD [facility] US PROCEDURES Final Result * (ABNORMAL) Lipid panel with reflex to direct LDL (10/19/2024 9:07 AM EST) Cholesterol 184 0 - 200 mg/dL LAB CHEMISTRY METHOD 10/19/2024 10:45 AM EST [facility] Triglycerides 209(H) 0 - 150 mg/dL LAB CHEMISTRY METHOD 10/19/2024 10:45 AM EST [facility] HDL 55 >=40 mg/dL LAB CHEMISTRY METHOD 10/19/2024 10:45 AM EST [facility] LDL Calculated 87 0 - 100 mg/dL LAB CHEMISTRY METHOD 10/19/2024 10:45 AM [facility] VLDL Cholesterol Avni 41.8 mg/dL LAB CHEMISTRY METHOD 10/19/2024 10:45 AM EST [facility] Non HDL Chol. (LDL+VLDL) 129 <145 mg/dL LAB CHEMISTRY METHOD 10/19/2024 10:45 AM EST [facility] Chol/HDL Ratio 3.3 0.0 - 4.4 LAB CHEMISTRY METHOD 10/19/2024 10:45 AM EST [facility] Blood Venous blood specimen / Unknown Venipuncture / Unknown 10/19/2024 9:07 AM EST 10/19/2024 9:07 AM EST us Di Pierson MD LAB BLOOD ORDERABLES Final Res ult Performing Organization Address City/[facility]/ZIP Co de Phone Number [facility] [address] [place] [address], * (ABNORMAL) Hemoglobin A1c (10/19/2024 9:07 AM EST) Hemoglobin A1C 6.8(H) <6.5 % LAB CHEMISTRY METHOD 10/19/2024 1:49 PM EST [facility] Mean Bld Glu Estim. 148 mg/dL LAB CHEMISTRY METHOD 10/19/2024 1:49 PM EST [facility] Blood Venous blood specimen / Unknown Venipuncture / Unknown 10/19/2024 9:07 AM EST 10/19/2024 9:07 AM EST us Di Pierson MD LAB BLOOD ORDERABLES Final Res ult Performing Organization Address City/[facility]/ZIP Co de Phone Number [facility] [address] [place] [address], * (ABNORMAL) Comprehensive metabolic panel (10/19/2024 9:07 AM EST) Sodium 139 133 - 145 mmol/L LAB CHEMISTRY METHOD 10/19/2024 10:45 AM [facility] Potassium 3.1(L) 3.5 - 5.5 mmol/L LAB CHEMISTRY METHOD 10/19/2024 10:45 AM [facility] Chloride 104 96 - 110 mmol/L LAB CHEMISTRY METHOD 10/19/2024 10:45 AM [facility] CO2 27 21 - 32 mmol/L LAB CHEMISTRY METHOD 10/19/2024 10:45 AM [facility] Anion Gap 8 3 - 11 LAB CHEMISTRY METHOD 10/19/2024 10:45 AM [facility] Glucose 186(H) 70 - 100 mg/dL LAB CHEMISTRY METHOD 10/19/2024 10:45 AM [facility] BUN 12 5 - 25 mg/dL LAB CHEMISTRY METHOD 10/19/2024 10:45 AM [facility] Creatinine 0.94 0.50 - 1.10 mg/dL LAB CHEMISTRY METHOD 10/19/2024 10:45 AM [facility] eGFR 60 >=60 mL/min/1. 73m2 LAB CHEMISTRY METHOD 10/19/2024 10:45 AM [facility] Comment:Calculation based on the??Chronic Kidney Disease Epidemiology Collaboration (CKD-EPI) equation refit??without adjustment for race. BUN/Creatinine Ratio 12.8 LAB CHEMISTRY METHOD 10/19/2024 10:45 AM [facility] Calcium 9.4 8.5 - 10.5 mg/dL LAB CHEMISTRY METHOD 10/19/2024 10:45 AM [facility] AST (SGOT) 17 10 - 42 unit/L LAB CHEMISTRY METHOD 10/19/2024 10:45 AM [facility] ALT (SGPT) 20 10 - 60 unit/L LAB CHEMISTRY METHOD 10/19/2024 10:45 AM EST [facility] Alkaline Phosphatase 134(H) 42 - 121 unit/L LAB CHEMISTRY METHOD 10/19/2024 10:45 AM [facility] Total Protein 7.3 6.0 - 8.0 g/dL LAB CHEMISTRY METHOD 10/19/2024 10:45 AM [facility] Albumin 3.5 3.2 - 5.0 g/dL LAB CHEMISTRY METHOD 10/19/2024 10:45 AM [facility] Total Bilirubin 0.6 0.0 - 1.4 mg/dL LAB CHEMISTRY METHOD 10/19/2024 10:45 AM [facility] Blood Venous blood specimen / Unknown Venipuncture / Unknown 10/19/2024 9:07 AM EST 10/19/2024 9:07 AM EST Di Pierson MD LAB BLOOD ORDERABLES Final Res ult [facility] [address] [place] [address], * Diabetes Eye Exam (01/04/2024) Diabetes: Annual Retina Eye Exam Abstracted Historical Provider HEALTH MAINTENANCE Final Result * [facility] DEXA AXIAL SKELETON (03/25/2022 11:34 AM EDT) Anatomical Region Laterality Modality Mammography 03/25/2022 10:3 3 AM EDT Narrative 03/25/2022 11:34 AM EDT [facility] Diagnostic Imaging Department [address] [place] [address] Patient: ??CALLIE RAPHAEL ?/Age/Sex: 1940 - 81 - F Unit#: ??[id number] ? Location/Status: ??SPDIMAM/REG CLI ? Mnemonic/Ordering Site: ??MAMDEXAAX/SPMAM Ordering Physician: ??DI PIERSON MD Dominic Dexa Axial Skeleton - [...] or osteopenia in the lumbar spine. Code 08688 Dictating Physician: ??SERENA HARGROVE MD Electronically Signed by: ??SERENA HARGROVE MD Dic Date/Time: ??03/25/22 1132 Sign date/Time: ??03/25/22 1134 Procedure Note Serena Hargrove MD - 09/08/2022 [facility] Diagnostic Imaging Department [address] [place] [id number] Patient: CALLIE RAPHAEL /Age/Sex: 1940 - 81 - F Unit#: [id number] Location/Status: SPDIMAM/REG CLI [facility]emonic[facility] Ordering Physician: DI PIERSON MD Dominic Dexa Axial Skeleton - [...] osteoporosis or osteopenia in thelumbar spine. Code 02997 Dictating Physician: SERENA HARGROVE MD Electronically Signed by: SERENA HARGROVE MD Dic Date/Time: 03/25/22 1132 Sign date/Time: 03/25/22 1134 Di Pierson MD IMG BI PROCEDURES Final Result from Last 3 Months or Most Recently Relevant to Health Maintenance Insurance [place] [phone] [employer] MEDICARE Care Teams Cement Finisher Helper Relationship Specialty Start Date End Date Di Pierson MD [address] [place] [phone] PCP - General Internal Medicine 01/21/21
== END 2025-02-27 10:40 | disposition home or self-care (01) ==
LOC: HO.HCS 10:03
PROVIDERS: PCP Internal Medicine; Visit Provider Internal Medicine
DX: I48.21 Permanent atrial fibrillation (principal); I10 Essential (primary) hypertension; E11.8 Type 2 diabetes mellitus with unspecified complications; J44.9 Chronic obstructive pulmonary disease, unspecified
CPT/HCPCS: 93010; 99214; G2211

== ENCOUNTER → 2025-02-27 10:02 | Outpatient (BNVA) | payer MEDICARE, SELFPAY | PROVIDERS: PCP Internal Medicine; Visit Provider Internal Medicine | DX: I48.21 Permanent atrial fibrillation (principal); I10 Essential (primary) hypertension; E11.8 Type 2 diabetes mellitus with unspecified complications; J44.9 Chronic obstructive pulmonary disease, unspecified; R94.31 Abnormal electrocardiogram [ECG] [EKG] | CPT/HCPCS: 93005; 99212 ==

== ENCOUNTER 2025-03-05 08:41 | Outpatient (REF) | payer MEDICARE, SELFPAY ==
--- NOTE | ~2025-03-05 | XR_ITS ---
EXAMINATION: XR PELVIS CLINICAL INFORMATION: M25.552 - Pain in left hip COMPARISON: November 22, 2023. TECHNIQUE: AP view of the pelvis. FINDINGS: Metallic prosthesis with an acetabular and femoral components well seated in the osseous structures of the left and right acetabulum and femur. There is a cerclage in the femoral component of the left hip prosthesis. No gross cortical disruption. No gross malalignment. There is loosening within the acetabular component, left more pronounced on the right side. Vascular calcifications in the upper thigh bilaterally. Sclerosis and the symphysis pubis. XR/XR pelvis 1-2V IMPRESSION: Total hip arthroplasty prosthesis, bilaterally without gross fracture or dislocation. Concerning loosening along the acetabular component both hips.. Electronically signed by: Aquiles Krause MD 03/05/2025 12:41 PM EDT
== END 2025-03-05 08:42 | disposition home or self-care (01) ==
LOC: HO.HOSX 08:41
PROVIDERS: Visit Provider Orthopaedic Surgery
DX: M25.551 Pain in right hip (principal); M25.811 Other specified joint disorders, right shoulder
CPT/HCPCS: 20610; 72170; 99212; J1010; J2003

== ENCOUNTER 2025-03-05 11:42 | Outpatient (AMB) | payer MEDICARE, SELFPAY ==
--- NOTE | 2025-03-05 11:44 | MHC.OFFVIS ---
Vital Signs 03/05/25 11:45 Height 5 ft 6 in Weight 169 lb BMI 27.3 Intake Visit Reasons: OV Right shoulder pain, limited ROM, Bilateral shoulder discomfort Intake Note: Callie is an 84 year old right hand dominant female who presents with complaints of right shoulder pain as well as intermittent discomfort along the lateral aspects of both of her hips. She did undergo bilateral total hip replacement surgery several years ago. She denies any fevers or chills. She continues to go to water aerobics for exercise. She has tried Tylenol which gives her mild relief. Allergies Sulfa (Sulfonamide Antibiotics) [SULFA (SULFONAMIDE ANTIBIOTICS)] Allergy (Mild, Verified 03/05/25 11:46) HIVES Iodinated Contrast Media [CONTRAST, IV] Allergy (Unknown, Verified 03/05/25 11:46) anaphylaxis oxycodone [OXYCODONE] Adverse Reaction (Unknown, Verified 03/05/25 11:46) hallucinations Medication List - Last Reconciled 03/05/25 by Frankie Perez MD albuterol sulfate 90 mcg/actuation inhalation allopurinol 100 mg PO BID amlodipine 7.5 mg PO DAILY apixaban 5 mg PO BID 90 days atorvastatin 20 mg PO BEDTIME digoxin 125 mcg PO DAILY dulaglutide 1.5 mg subcut QWEEK fluticasone furoate-vilanterol 200-25 mcg/dose (Breo Ellipta) 1 ea inhalation DAILY losartan 100 mg PO DAILY 30 days metformin 1,000 mg PO BID metoprolol succinate ER 100 mg PO DAILY montelukast 10 mg PO BEDTIME [facility] Medical History Chronic obstructive pulmonary disease, unspecified Type 2 diabetes mellitus with unspecified complications Essential hypertension Other and unspecified hyperlipidemia Permanent atrial fibrillation Surgical History History of total hip arthroplasty History of arthroplasty of knee Family History Father Myocardial infarction Mother Hypertension Social History Alcohol intake: current Alcohol intake frequency: holidays/special occasions only Physical Exam Vital Signs: BMI result Body Mass Index 27.3 Const Other: Well-nourished well-developed very friendly female awake alert and oriented x3 in no acute distress Extrem Other: Bilateral hip examination shows that the surgical incisions are well healed, no erythema, minimal discomfort with range of motion, mild tenderness over her bursa Right shoulder examination shows slightly decreased range of motion when compared to her left shoulder, 4+ out of 5 strength with supraspinatus testing, positive impingement signs, no instability Office Procedures AMB Joint Injection/Aspiration Joint Injection/Aspiration Primary Site: right shoulder Prep: site was prepped using aseptic technique Injected: 40 mg of, DepoMedrol and 1% plain lidocaine Procedure: The patient tolerated the procedure well Coding - Large joint Procedure code (CPT) selection complete Results Reviewed Results Reviewed: X-rays of the patient's bilateral hips taken today show total hip arthroplasties in good position with no signs of loosening, no acute bony abnormalities Assessment & Plan Assessment & Plan (1) Impingement of right shoulder: Code(s): M25.811 - Other specified joint disorders, right shoulder Category: Medical Plan Ms. Raphael is doing well after undergoing bilateral total hip replacement surgeries. She does have intermittent discomfort due to greater trochanteric bursitis. We will hold off on a cortisone injection for her hip discomfort at this time. The patient also has right shoulder pain due to impingement syndrome. The risks and benefits of a right shoulder cortisone injection were discussed at length with the patient. The patient wished to proceed. She tolerated the injection well. She will continue with her water aerobics exercise program. She will follow up with me on an as-needed basis should her symptoms not plateau at an unacceptable level over the next few months. Feel free to call me at any time should questions regarding her orthopedic management arise. I spent 20 minutes in reviewing the patient's records and imaging studies, seeing the patient and documenting in the medical record. Orders: Orders XR pelvis 1-2V Today M25.551 - Pain in right hip, M25.552 - Pain in left hip AMB Joint Injection/Aspiration Today M25.811 - Other specified joint disorders, right shoulder Coding Level of Care Code Est Pt Level 3 (57202) Complex EM visit Add On G2211 Diagnoses Impingement of right shoulder M25.811 CPT Codes Coding - 37611 Large joint: 67580 - Large joint ([id number])
[2025-03-05 11:45] VITALS: BMI 27.3
--- OUTSIDE RECORDS SUMMARY | 2025-03-05 13:22 | XMS_ITS | Encounter Summary ---
Author Organization [facility] Address [address] [place] [address] Care Team Providers Care Emergency Department Coordinator Name Role Phone Maliha Pierson MD Primary Care Provider [phone] Reason for Visit * Reason Onset Date Comments Kenna: Fax lab work 02/27/2025 Encounter Details Date Type Department Care Team (Late st Contact Info) Description 02/27/2025 Telephone Internal Medicine - [place] [address] [place] [phone] Maliha Pierson MD [address] [place] [phone] Kenna: Fax lab work Social History Tobacco Use Types Packs/Day Years [...] AM EST documented as of this encounter Progress Notes * Amos Pinto [place] - 02/28/2025 8:21 AM EDT Faxed labs from 10/19/24 to number provided via rightfax. * Dariana Rao - 02/27/2025 4:38 PM EDT [facility] called and requested the patients most recent lab results. Please advise Cb# [phone] documented in this encounter Plan of Treatment Upcoming Encounters Date Type Department Care Team (Late st Contact Info) Description 03/21/2025 2:30 PM EDT Evaluation [facility] - [place] [address] [place] [phone] Tammie Campos, PT 04/22/2025 1:00 PM EDT Office Visit Internal Medicine - [place] [address] [place] [phone] Maliha Pierson MD [address] [place] [phone] documented as of this encounter Visit Diagnoses Not on filedocumented in this encounter Care Teams Emergency Department Coordinator Relationship Specialty Start Date End Date Maliha Pierson MD [address] [place] [phone] PCP - General Internal Medicine 01/21/21 documented as of this encounter
== END 2025-03-05 12:38 | disposition home or self-care (01) ==
PROVIDERS: PCP Internal Medicine; Visit Provider Orthopaedic Surgery
DX: M25.811 Other specified joint disorders, right shoulder (principal)
CPT/HCPCS: 20610; 99213

== ENCOUNTER → 2025-03-05 11:44 | Outpatient (BNV) | payer MEDICARE, SELFPAY | PROVIDERS: Visit Provider Radiology Diagnostic Radiology | DX: T84.031A Mechanical loosening of internal left hip prosthetic joint, initial encounter (principal) | CPT/HCPCS: 72170 ==

== ENCOUNTER 2025-06-10 12:36 | Outpatient (REF) | payer MEDICARE, SELFPAY ==
--- NOTE | ~2025-06-10 | MM_ITS ---
EXAMINATION: MM SCREENING DIGITAL BREAST TOMOSYNTHESIS, BILATERAL CLINICAL INFORMATION: Screening. Asymptomatic. COMPARISON: Comparison made to multiple prior, most recent May 18, 2024, and most remote October 04, 2019. TECHNIQUE: Digital breast tomosynthesis is performed in mediolateral oblique and craniocaudal views along with computer-aided detection (CAD). Synthesized 2D images are generated from the tomosynthesis. FINDINGS: BREAST COMPOSITION: The breasts are heterogeneously dense, which may obscure small masses. BILATERAL BREASTS: No significant masses, suspicious calcifications or other abnormalities are seen in either breast. MM/MM tomosynthesis screening BI IMPRESSION: BILATERAL BREASTS: Negative, no mammographic evidence of malignancy. Normal interval follow-up is recommended in 12 months. ASSESSMENT: BI-RADS: Category 1: Negative RECOMMENDATION: Routine annual mammography screening. FOLLOW-UP: 1 year F/U This examination should not preclude the clinical evaluation of a suspicious palpable abnormality. This patient's information was entered into a reminder system with a target due date for their next mammogram. Electronically signed by: Alexsandra Aiken MD 06/11/2025 06:43 PM EDT
== END 2025-06-10 12:37 | disposition home or self-care (01) ==
LOC: HO.MAMMO 12:36
PROVIDERS: PCP Internal Medicine; Visit Provider Internal Medicine
DX: Z12.31 Encounter for screening mammogram for malignant neoplasm of breast (principal)
CPT/HCPCS: 77063; 77067

== ENCOUNTER → 2025-06-10 12:45 | Outpatient (BNV) | payer MEDICARE, SELFPAY | PROVIDERS: PCP Internal Medicine; Visit Provider Radiology Body Imaging | DX: Z12.31 Encounter for screening mammogram for malignant neoplasm of breast (principal) | CPT/HCPCS: 77063; 77067 ==

== ENCOUNTER 2025-06-27 09:05 | Outpatient (AMB) | payer MEDICARE, SELFPAY ==
[2025-06-27 09:07] VITALS: BP 124/64; PULSE 59; BMI 26.6
--- NOTE | 2025-06-27 09:07 | MHC.OFFVIS ---
Vital Signs 06/27/25 09:07 Height 5 ft 6 in Weight 164 lb 14.492 oz BMI 26.6 BP 124/64 Position Sitting Pulse 59 Pulse Source Pulse Oximeter Intake Visit Reasons: 2 week f/up julián d/c Accompanied by: Daughter Allergies Sulfa (Sulfonamide Antibiotics) (SULFA (SULFONAMIDE ANTIBIOTICS)) Allergy (Mild, Verified 06/27/25 09:10) HIVES Iodinated Contrast Media (CONTRAST, IV) Allergy (Unknown, Verified 06/27/25 09:10) anaphylaxis oxycodone (OXYCODONE) Adverse Reaction (Unknown, Verified 06/27/25 09:10) hallucinations Medication List - Last Reconciled 06/27/25 by Wallace Ansari MD albuterol sulfate 90 mcg/actuation inhalation allopurinol 100 mg PO BID amlodipine 10 mg PO DAILY apixaban 5 mg PO BID 90 days atorvastatin 20 mg PO BEDTIME clonidine HCl 10mg 1 tab orally 2 times a day; dulaglutide 1.5 mg subcut QWEEK fluticasone furoate-vilanterol 200-25 mcg/dose (Breo Ellipta) 1 ea inhalation DAILY PRN losartan 100 mg PO DAILY 30 days metformin 1,000 mg PO BID metoprolol succinate ER 100 mg PO DAILY montelukast 10 mg PO BEDTIME HPI Comments Details: Callie returns for follow-up regarding atrial fibrillation. Recently admitted to [facility] with a question of stroke. It seems that she had several other symptoms like left-sided facial droop, paresthesias and blurry vision. Then underwent further workup including head and neck CTA as well as an MRI that showed no acute findings. Blood pressure was noted to be quite high at that time. Home blood pressure diary still shows pressure is on the higher side. Otherwise, no clear-cut cardiac concerns like angina or shortness of breath. It seems that clonidine has been started through her own PCP and she is reporting symptoms like tiredness, dry mouth extra. She also feels her heart rate to be quite low as much as the 40s. [facility] Medical History Chronic obstructive pulmonary disease, unspecified Type 2 diabetes mellitus with unspecified complications Essential hypertension Other and unspecified hyperlipidemia Permanent atrial fibrillation Surgical History History of total hip arthroplasty History of arthroplasty of knee Family History Father Myocardial infarction Mother Hypertension Social History Alcohol intake: current Alcohol intake frequency: holidays/special occasions only Review of Systems Const Denies daytime sleepiness, Denies difficulty sleeping, Denies snoring, Denies stops breathing during sleep and Denies weakness Card Denies chest pain, Denies rapid heart rate, Denies irregular heart rhythm, Denies claudication, Denies leg edema, Reports lightheadedness, Denies palpitations, Denies dyspnea, Denies dyspnea on exertion, Denies orthopnea, Denies paroxysmal nocturnal dyspnea and Denies slow heart rate Resp Denies cough, Denies dyspnea, Denies dyspnea on exertion and Denies snoring GI Reports no additional complaints, Denies hematochezia, Denies change in stool character and Denies dyspepsia Musc Denies abnormal gait, Denies muscle weakness and Denies numbness Neuro Denies abnormal gait, Denies numbness and Denies weakness Endo Denies palpitations Physical Exam Vital Signs: Last Vital Signs Pulse 59 06/27/25 09:07 BP 124/64 06/27/25 09:07 BMI result Body Mass Index 26.6 Const General: comfortable and no acute distress Orientation/consciousness: patient oriented x3 HEENT Other: Unremarkable Head: Yes normal to inspection Neck Neck: Yes normal visual inspection Chest Chest palpation & inspection: normal inspection of the chest Resp Auscultation: clear to auscultation bilaterally Cardio Palpation: normal PMI Heart sounds: S1 normal heart sound present, S2 normal heart sound present, no gallops, no murmurs and no rubs GI Palpation (GI): Soft to palpation Back/Spine/Pelvis Other: unremarkable Skin General skin exam: no rashes or lesions noted Neuro General: patient oriented x3 Extrem General: Yes normal to inspection Psych Mental Status: mental status grossly normal Assessment & Plan Assessment & Plan (1) Permanent atrial fibrillation: Code(s): I48.21 - Permanent atrial fibrillation Category: Medical Plan: Because of concern for bradycardia, stop the digoxin. They can monitor home vital signs. We will get a formal Holter before next visit. Continue Eliquis. (2) Essential hypertension: Code(s): I10 - Essential (primary) hypertension Category: Medical Plan: Continue amlodipine and losartan. Stop metoprolol and start carvedilol instead. We can start weaning down on the clonidine as she is reporting a lot of side effects. May have to consider other medications like spironolactone/diuretic. Possibly hydralazine. They will report blood pressure readings through patient portal or contact us. (3) TIA (transient ischemic attack): Code(s): G45.9 - Transient cerebral ischemic attack, unspecified Category: Medical Plan: Neurologic we will workup including head and neck CTA as well as brain MRI were unremarkable. Advised to just take Eliquis without interruptions. We will check an echocardiogram if there was none done during [facility] hospitalization. Plan Discussion Notes During the visit, we discussed the patient's recent transient ischemic attack and the importance of controlling her blood pressure to prevent future events. We reviewed her current medication regimen, including amlodipine, losartan, metoprolol, and digoxin, and considered adjustments to optimize blood pressure control and address side effects such as bradycardia, dry mouth, and fatigue. The patient was advised to follow up with her casino assistant manager for her vision changes and to monitor her blood pressure and heart rate closely. Patient was informed and verbally consented to the use of an ambient scribe for clinic note documentation during this visit. Orders: Orders ECG 3 day holter monitor 8 Weeks I48.21 - Permanent atrial fibrillation, R00.2 - Palpitations Medications: New carvedilol (Coreg) must administer with a meal/food 25 mg PO BID 180 tabs 1RF 90 days Discontinued digoxin Discontinued Reason: Doctor's Order 125 mcg PO DAILY 90 tabs 3RF Patient Instructions: - Monitor your blood pressure and heart rate regularly. - Follow up with your casino assistant manager for vision changes. - Adhere to your medication regimen and report any side effects. - Contact the clinic if you experience any new or worsening symptoms. Coding Level of Care Code Est Pt Level 4 (45490) Complex EM visit Add On G2211 Diagnoses Permanent atrial fibrillation I48.21 Essential hypertension I10 TIA (transient ischemic attack) G45.9
== END 2025-06-27 09:44 | disposition home or self-care (01) ==
LOC: HO.HCS 09:06
PROVIDERS: PCP Internal Medicine; Visit Provider Internal Medicine
DX: I48.21 Permanent atrial fibrillation (principal); I10 Essential (primary) hypertension; G45.9 Transient cerebral ischemic attack, unspecified
CPT/HCPCS: 99214; G2211

== ENCOUNTER → 2025-06-27 09:05 | Outpatient (BNVA) | payer MEDICARE, SELFPAY | PROVIDERS: PCP Internal Medicine; Visit Provider Internal Medicine | DX: I48.21 Permanent atrial fibrillation (principal); I10 Essential (primary) hypertension; G45.9 Transient cerebral ischemic attack, unspecified | CPT/HCPCS: 99212 ==